=== PATIENT | male | born 1935 | race Caucasian/White ===

== ENCOUNTER 2016-06-17 10:07 | Day surgery (SDC) | payer MEDICARE, OTHER ==
[2016-06-17] VITALS (7 sets, daily range): BP systolic 123–151; BP diastolic 62–75; PULSE 48–56; RESP 12–16; O2SAT 96–100
[~2016-06-17] VITALS: Ht 175.3 cm; Wt 90.6 kg
[~2016-06-17 10:07] MED LIST: ASPI-973 PO; CHOL100045 PO; Lactated Ringer's 1,000 ML IV SCH; PRAM1.5T5 PO; VITA-230 PO; VITA200C61 PO
[2016-06-17] MEDS ORDERED: EPHEDrine/NS 5 mg/mL 5 mL Syringe ONE (10:08)
[2016-06-17] MEDS ORDERED: Dexamethasone 4 mg/mL Inj ONE (10:08)
[2016-06-17] MEDS ORDERED: fentaNYL-PF 50 mCg/mL 2 mL Inj ONE (10:08)
[2016-06-17] MEDS ORDERED: Propofol 10,000 mCg/mL 20 mL Inj ONE (10:08)
[2016-06-17] MEDS ORDERED: Ondansetron 2 mg/mL 2 mL Inj ONE (10:08)
[2016-06-17] MEDS ORDERED: Lactated Ringer's 1,000 ML IV ONE (11:19)
--- NOTE | 2016-06-17 11:22 | PCM.HPANE ---
Patient Data Date of Service: Jun 17, 2016 Surgeon Admitting Provider: Attending Provider:Angel Flores MD Primary Care Physician:Octavia Mares MD Other Provider:Dino Romero Anesthesia Reason for Visit Right Flank Melanoma Ht/WT & BMI Height (Feet): 5 Height (Inches): 9.00 Weight (Kilograms): 90.6 Body Mass Index 29.00 Allergies Coded Allergies: No Known Drug Allergies (Verified Allergy, Unknown, 03/05/16) Past Anesthesia History Anesthesia History: Denies:: Abnormal Airway, Anesthesia Reactions, Difficult Intubation, Fam Anesthesia Reaction, Fam Malignant Hypertherm, Malignant Hyperthermia Diabetes History Hx Diabetes?: No Current Bedside Blood Glucose: 95 MRSA MRSA: No Medications Blood Thinner: Aspirin Last Dose Blood Thinner: Jun 16, 2016 Hypertension Medication: No Home Meds Incl Beta Og: No Reported Medications Pramipexole Dihydrochloride 1.5 Mg Tablet0.75 Mg PO TID 06/16/16 Vitamin E (Dl,Tocopheryl Acet) (Vitamin E)200 Unit Rvmdsys380 Unit PO DAILY 06/16/16 Cholecalciferol (Vitamin D3) (Vitamin D)1,000 Unit Capsule2,000 Unit PO DAILY # 1 BOTTLE Ref 0 06/16/16 Vitamin A Palmitate (Vitamin A)10,000 Unit Mdxbmme47,000 Unit PO DAILY 30 Days Ref 0 06/16/16 Aspirin 81 Mg Tdcekw68 Mg PO DAILY Ref 0 06/16/16 Discontinued Reported Medications [Vit E] No Conflict Check1 Tab PO DAILY 03/05/16 Ascorbic Acid (Vitamin C)500 Mg Capsule.er500 Mg PO DAILY 03/05/16 Pramipexole Dihydrochloride 1.5 Mg Tablet1.5 Mg PO TID 03/05/16 Cholecalciferol (Vitamin D3) (Vitamin D)2,000 Unit Capsule2,000 Unit PO DAILY 30 Days Ref 0 10/13/14 Aspirin (Aspir 81)81 Mg Tablet.dr81 Mg PO DAILY Ref 0 10/13/14 History History of ENT Problems?: No HEENT History: Denies:: Abnormal Airway Difficult Intubation Dysphagia Hearing Problem Sinus Problem Hx of Heart Problems?: No Cardiovascular History: Denies:: AICD Atrial Fibrillation Chest Pain Heart Murmur Hypertension Pacemaker Rheumatic Fever Thrombophlebitis Valvular Heart Disease Hx of Respiratory Problem?: No Respiratory History: Denies:: Asthma COPD Cough Dyspnea Emphysema Hemoptysis Pneumonia Tuberculosis Use of C-PAP Machine Hx Neurologic Problems?: Yes Neurological History: Positive for:: Parkinson's Disease Denies:: Alzheimer's Disease CVA Dementia Dizziness Headaches Seizures Hx of GI Problems?: No Gastrointestinal History: Positive for:: Heartburn Denies:: Cirrhosis Diverticulitis Gastroesphageal Reflux Hepatitis Hiatal Hernia Rectal Bleeding Hx of Problems?: Yes Genitourinary History: Denies:: HX of Hemodialysis Kidney Stones Urinary Tract Infection Male Hx: Positive for:: Prostate Problems (PROSTATECTOMY) Skin History: Positive for:: History Skin Disorders? (SQUAMOUSE CELL CA AND MELANOMA) Denies:: Pressure Ulcers Hx Musculoskeletal Problems?: Yes Musculoskeletal History: Positive for:: Joint Replacement (BI-LATERAL KNEE, RIGHT HIP) Musculoskeletal Trauma Denies:: Back Injury Hx of Psycho/Social Problems?: No Psycho Social History: Positive for:: Hx Depression Denies:: Anxiety Bipolar Disorder Hx Surgeries?: Yes (BI-LATERAL KNEE, MELANOMA, SQUMOUS CELL CA) Hx Any Other Health Problems?: Yes Other History: Positive for:: Cancer (SQUAMAS CELL AND MELANOMA, PROSTATE) Hospitalization Denies:: Endocrine Disease Thyroid Disease History Blood Transfusions: Denies:: Blood Transfusions Hx Diabetes: NoBedside Blood Glucose: 95 Hx Alcohol Use: Yes (WINE)Alcoholic Drinks Per Day: 1-2Hx Substance Use: No Smoking Status: Former Smoker Have You Smoked inLast 12 mo: No Stop/Bang Treated for Sleep Apnea?: No Do You Have a CPAP Machine?: No S-Snoring: Do You Snore Loudly: No T-Tired: feel tired, fatigued: No O-Obsered: Observed not breath: No P-Blood Pressure: treated: No B- Body Mass Index > 35 kg/m2: No A- Age over 50: Yes N- Neck Large Circumference: No G- Gender Male: Yes GERONIMO Total Score: 2 GERONIMO Risk Assessment: Low Risk, <3 Yes Risk Assessment Category Category 1A: Patient has history of documented sleep apnea, and HAS NOT received any narcotic, sedative or anesthesia administration during this stay. Category 1B: Patient has history of documented sleep apnea, and HAS received any narcotic , sedative or anesthesia administration during this stay Category 2: Patient has SUSPECTED Obstructive Sleep Apnea, and HAS received any narcotic , sedative or anesthesia administration during this stay. Category 3: Patient has SUSPECTED Obstructive Sleep Apnea and HAS NOT received narcotic, sedative or anesthesia administration during this stay. Category 4: Outpatient in Procedural Areas with known sleep apnea or who screen positive for High Risk via the STOP/BANG questionnaire. Exam Exam Vital Signs Vital Signs Date Time Temp Pulse Resp B/P Pulse Ox O2 Delivery O2 Flow Rate FiO2 06/17/16 10:32 36.0 56 16 146/72 100 Room Air General Appearance: Alert, Oriented X3, Cooperative, No Acute Distress HEENT/AIRWAY: MP 2, Other (FROM, TMD > 3 FB) Lungs: Clear to Auscultation, Normal Air Movement Heart: Exam Unremarkable, Regular Rate/Rhythm, No Murmurs/Rubs/Gallops Meds/Labs/Diagnostics Bedside Blood Glucose: 95 Plan Impression Patient chart reviewed, patient interviewed and anesthestic plan with risks, benefits, and alternatives discussed, and informed consent obtained. NPO Status: 06/16 at 1600 ASA Physical Status: ASA2 Mod Systemic Disease Anesthetic Plan: GA Bene/Risks/Altern/Consents: Yes HP Complete Prior to Induction: Yes Matt Mccrary MD Jun 17, 2016 11:22
[2016-06-17] MEDS ORDERED: Lactated Ringer's 500 ML IV PRN (11:48)
[2016-06-17] MEDS ORDERED: Lactated Ringer's 1,000 ML IV SCH (11:48)
[2016-06-17] MEDS ORDERED: EPHEDrine Sulfate 50 mg/mL Inj IVPUSH PRN (11:50)
[2016-06-17] MEDS ORDERED: Phenylephrine 10,000 mCg/mL Inj IVPUSH PRN (11:50)
[2016-06-17] MEDS ORDERED: fentaNYL-PF 50 mCg/mL 2 mL Inj IVPUSH PRN (11:50)
[2016-06-17] MEDS ORDERED: Ondansetron 2 mg/mL 2 mL Inj IVPUSH PRN (11:50)
[2016-06-17] MEDS ORDERED: HYDROmorphone 1 mg/mL Inj IVPUSH PRN (11:50)
[2016-06-17] MEDS ORDERED: Dexamethasone 4 mg/mL Inj IVPUSH PRN (11:50)
[2016-06-17] MEDS ORDERED: Bupivacaine-MPF 0.5% 30 mL Inj INFILTRATE ONE (11:55)
[2016-06-17] MEDS ORDERED: HYDROcodone-APAP 5-325 mg Tablet PO PRN (12:50)
--- NOTE | 2016-06-17 12:59 | PCM.ANEP1 ---
Post Anesthesia Phase 1 PACU Phase 1 Assessment Date of Service: Jun 17, 2016 Vital Signs Vital Signs Date Time Temp Pulse Resp B/P Pulse Ox O2 Delivery O2 Flow Rate FiO2 06/17/16 12:55 48 14 139/71 98 Nasal Cannula 3 06/17/16 12:49 36.0 56 14 139/69 97 Nasal Cannula 3 06/17/16 10:32 36.0 56 16 146/72 100 Room Air Anesthetic Administered: GA Level of Alertness: Awake, talking GENAO's with Equal Strength: Yes Pain: No Nausea or Vomiting: No Oxygen Delivery: Nasal Cannula Lungs: Clear to Auscultation, Normal Air Movement Dermatome Level: Full Sensation Matt Mccrary MD Jun 17, 2016 12:59
--- NOTE | 2016-06-17 22:32 | OP ---
[address] [address] OPERATIVE REPORT PATIENT: JUDY FROST : 1935 MR#: [id number] ADMIT: 06/17/2016 JOB ID: [id number] DATE OF SURGERY: 06/17/2016 PREOPERATIVE DIAGNOSIS(ES): Metastatic malignant melanoma. POSTOPERATIVE DIAGNOSIS(ES): Metastatic malignant melanoma. PROCEDURES: 1. Right axillary wire localized lymph node biopsy. 2. Excision 4 cm right anterior flank lesion. 3. Excision 7 cm right posterior flank lesion. SURGEON: Angel Flores MD PRODUCTION STATISTICAL CLERK: Bravo Kat PA-C INDICATIONS: The patient is an 81-year-old man. He has had a previous right mid back malignant melanoma excised in 2009 at the [facility] by Dr. Rick Mendoza. The final pathology report was T2b N0. He recently developed a biopsy-proven recurrence in his right flank. A biopsy of a palpable subcutaneous nodule showed melanoma, and then he had a skin biopsy anterior to that that actually did not show melanoma but has not healed. He underwent imaging studies which showed a PET positive lymph node in the right axilla. He has been treated with five courses of nivolumab by Dr. Moreira. The subcutaneous nodule in his flank is essentially resolved. The right axillary node which was never palpable has decreased in size by imaging studies. But after discussing options with the patient and with Dr. Moreira, it was elected to proceed with excision of the right posterior and anterior flank lesions as well as excision of the image positive right axillary node. In order to find the node, I arranged for wire localization of it with ultrasound preoperatively. FINDINGS: Adjacent to the ultrasonically placed wire was a lymph node in the axilla that grossly appeared normal and was about the size as described on his imaging studies, 7-8 mm. I did not cut into it, but it was not grossly black. The anterior right flank lesion was 4 cm, and the known malignant right posterior flank lesion was 7 cm. All these lesions were submitted to Pathology. DESCRIPTION OF PROCEDURE: At the beginning and end of the operation, the SCOAP checklist was completed. An LMA anesthetic was induced. He was then placed into the left lateral decubitus position on a greer bag. After careful inspection of appropriate padding and support of his right arm, using Betadine, he was prepped and draped in the usual fashion. The right axillary node was excised first. An incision following skin lines was made adjacent to the wire which was then brought in to that incision. Using cautery dissection through subcutaneous tissue, extended the wound deeper; but then the wire could be seen going through the latissimus dorsi. I then dissected anterior to the anterior border of the latissimus dorsi, and then on the anterior medial side of the muscle, I was able to identify the wire and bring it through into the wound which had by this point deepened into the axilla. I was then able to identify the lymph node in question. It was excised using a LigaSure device. The specimen was sent to Pathology. With the findings as stated above. The wound was then closed with layers of running subcutaneous 3-0 Vicryl, including the clavipectoral fascia. The skin was closed with running subcuticular 4-0 Vicryl. I then turned my attention to the nonhealing right anterior flank lesion. A 1-cm margin was designed around the lesion, and then for better closure, I turned that [place] into an ellipse arranged in an anterior to posterior dimension. After injecting 0.5% plain bupivacaine, the lesion was excised with the findings as stated above. I then excised the right posterior subcutaneous mass lesion. An elliptical incision was then designed, and the lesion was excised using cautery. In both of the last two specimens, sutures were placed for margin orientation. After obtaining hemostasis, both wounds were closed with subcutaneous 3-0 Vicryl and running subcuticular 4-0 Vicryl. Dermabond was placed on all three incisions. Estimated blood loss 10 cc. No apparent complications. The final sponge, needle and instrument counts were announced as correct, and the patient was returned to recovery room in stable condition. Critical assistance was provided by Bravo Kat PA-C.
--- NOTE | 2016-06-18 17:44 | PCM.ANEP2 ---
Post Anesthesia Evaluation ASA/CMS Post Anesthesia Date of Service: Jun 18, 2016 VS in Patient's Normal Range?: Yes Resp Stable; Airway Patent?: Yes CV Function & Hydration Stable: Yes Mental Status Recovered?: Yes Pain control Satisfactory?: Yes N/V Control Satisfactory?: Yes Matt Mccrary MD Jun 18, 2016 17:44
[2016-09-01] MEDS ORDERED: DONE23TA PO (12:16)
[2016-11-14] MEDS ORDERED: BRIM5DRO9 OP (11:07)
[2016-11-14] MEDS ORDERED: PRAM0.754 PO (11:11)
== END 2016-06-17 23:59 | disposition home or self-care (01) ==
LOC: SAS 10:07
PROVIDERS: ATTEND Surgery
DX: C43.59 Malignant melanoma of other part of trunk (principal); I89.8 Other specified noninfective disorders of lymphatic vessels and lymph nodes; G20 Parkinson's disease; Z79.82 Long term (current) use of aspirin
CPT/HCPCS: 11604; 11606; 38525; J1100; J2405; J7120

== ENCOUNTER 2016-11-17 11:00 | Day surgery (SDC) | payer MEDICARE, OTHER ==
[~2016-11-17] VITALS: Ht 175.3 cm; Wt 86.2 kg
[~2016-11-17 11:00] MED LIST changes: +0.9% Sodium Chloride 1,000 ML IV SCH; +BRIM5DRO9 OP; +DONE23TA PO; -Lactated Ringer's 1,000 ML IV SCH; +PRAM0.754 PO; +Sodium Chloride LOK Flush 10 mL Syringe IV PRN; +fentaNYL-PF 50 mCg/mL 2 mL Inj IVPUSH PRN
[2016-11-17 11:21] VITALS: BP 148/80; PULSE 56; RESP 14; O2SAT 99
[2016-11-17 12:37] VITALS: BP 133/69; PULSE 47; RESP 16; O2SAT 97
[2016-11-17 12:48] VITALS: BP 116/64; PULSE 43; RESP 16; O2SAT 95
[2016-11-17 12:58] VITALS: BP 116/64; PULSE 48; RESP 16; O2SAT 96
--- NOTE | 2016-11-17 23:58 | ENDO ---
[address] [address] ENDOSCOPY PROCEDURE PATIENT: JUDY FROST : 1935 MR#: [id number] ADMIT: 11/17/2016 JOB ID: [id number] DATE: 11/17/2016 PRIMARY PROVIDER: Octavia Mares MD PROCEDURE: Colonoscopy with hot snare polypectomy. 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 He returns for surveillance. EQUIPMENT: PCF-H180-AL. SEDATION: 3 mg Versed, 75 mcg fentanyl. COMPLICATIONS: None identified. BOWEL PREPARATION: Fair, adequate exam. PROCEDURE INFORMATION: After the risks and benefits were explained, written and verbal informed consent was obtained. The patient was brought into the endoscopy suite and placed into the left lateral decubitus position. Sedation was achieved as above. A digital rectal examination accomplished. No significant pathology appreciated. The scope was introduced into the rectum and advanced under direct visualization to the level of the cecum, as identified by the appendiceal orifice and ileocecal valve. The scope was slowly withdrawn to carefully examine the mucosa for any defects or lesions. Retroflexed views were avoided in the rectum. Multiple direct views were made through the dentate line for exclusion of pathology. The colon was decompressed, the scope removed from the patient who tolerated the procedure well. FINDINGS: In the transverse colon, there were two perhaps 7-8 mm sessile polyps removed by way of hot snare. I did not see any other significant pathology throughout. ENDOSCOPIC DIAGNOSIS: Colon polyps x2. RECOMMENDATIONS: 1. Await histopathology. 2. Repeat colonoscopy in one year.
--- NOTE | 2016-11-18 13:55 | PATH ---
SURGICAL PATHOLOGY Attending Physician:Adelaide Carl CASE STATUS: Signed Out PATIENT NAME: JUDY FROST PID: [id number] : 1935 DATE COLLECTED:11/17/2016 22:33 SPECIMEN: Colon, Polyp CLINICAL HISTORY: COLON POLYPS 1). 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 ICD10 D12.3 GROSS DESCRIPTION: Received in formalin, labeled with the patient' s name and "transverse colon polyp", are multiple fragments of ramirez, soft tissue ranging in size from 0.1 x 0.1 x 0.1 cm to 0.2 x 0.2 x 0.2 cm. All fragments are totally submitted in cassette 1A. ([id number]) MICRO DESCRIPTION: See diagnosis. ICD-9 CODES: CPT CODES: 1: 93767 Electronically Signed Out Matthew Jeffries MD [facility] [address], [place] [address] Technical component performed at [facility], [address], [place], [address]
== END 2016-11-17 23:59 | disposition home or self-care (01) ==
LOC: END 11:00
PROVIDERS: ATTEND Internal Medicine Gastroenterology
DX: Z12.11 Encounter for screening for malignant neoplasm of colon (principal); D12.3 Benign neoplasm of transverse colon; Z86.010 Personal history of colon polyps; G20 Parkinson's disease; Z85.46 Personal history of malignant neoplasm of prostate; Z85.820 Personal history of malignant melanoma of skin; Z96.641 Presence of right artificial hip joint; Z79.82 Long term (current) use of aspirin
CPT/HCPCS: 45385; 88305; 99153; G0500; J7030

== ENCOUNTER → 2016-12-29 | Day surgery (SDC) | payer MEDICARE, OTHER ==
[~2016-12-29] VITALS: Ht 175.3 cm; Wt 82.7 kg
[2016-12-29] VITALS (9 sets, daily range): BP systolic 86–131; BP diastolic 47–68; PULSE 47–57; RESP 11–25; O2SAT 97–100
[~2016-12-29] MED LIST changes: -0.9% Sodium Chloride 1,000 ML IV SCH; +Acetaminophen IV 1,000 MG in IV Premix 1 EACH IV ONE; +CeFAZolin Inj 2 GM in IV Premix 1 EACH IV ONE; -DONE23TA PO; +DONE5TAB30 PO; +EPHEDrine Sulfate 50 mg/mL Inj IVPUSH PRN; +EPHEDrine/NS 5 mg/mL 5 mL Syringe ONE; +Lactated Ringer's 1,000 ML IV ONE; +Lactated Ringer's 1,000 ML IV SCH; +Lactated Ringer's 500 ML IV PRN; +Ondansetron 2 mg/mL 2 mL Inj IVPUSH PRN; -PRAM1.5T5 PO; +Phenylephrine 10,000 mCg/mL Inj IVPUSH PRN; +Propofol 10,000 mCg/mL 20 mL Inj ONE; -Sodium Chloride LOK Flush 10 mL Syringe IV PRN; -fentaNYL-PF 50 mCg/mL 2 mL Inj IVPUSH PRN; +fentaNYL-PF 50 mCg/mL 2 mL Inj ONE
--- NOTE | 2016-12-29 12:27 | PCM.HPANE ---
Patient Data Date of Service: Dec 29, 2016 Surgeon Admitting Provider: Attending Provider:Kalie Myers MD Primary Care Physician:Octavia Mares MD Other Provider:Dino Romero Anesthesia Reason for Visit Bladder Neck Contracture Ht/WT & BMI Height (Feet): 5 Height (Inches): 9 Weight (Kilograms): 82.7 Body Mass Index 27.00 Allergies Coded Allergies: carbidopa (Verified Allergy, Intermediate, Diarrhea, 12/24/16) levodopa (Verified Allergy, Intermediate, Diarrhea, 12/24/16) Past Anesthesia History Anesthesia History: Denies:: Abnormal Airway, Anesthesia Reactions, Difficult Intubation, Fam Anesthesia Reaction, Fam Malignant Hypertherm, Malignant Hyperthermia Diabetes History Hx Diabetes?: No MRSA MRSA: No Medications Blood Thinner: Aspirin Hypertension Medication: No Home Meds Incl Beta Og: No Reported Medications Donepezil 5 Mg Tablet5 Mg PO HS Ref 0 12/23/16 Pramipexole Di-HCl (Pramipexole Dihydrochloride)0.75 Mg Tablet0.75 Mg PO TID 11/14/16 Brimonidine Tartrate (Brimonidine 0.2% Oph Soln)5 Ml Drops1 Drop OP TID #1 BOTTLE Ref 0 11/14/16 Vitamin E (Dl,Tocopheryl Acet) (Vitamin E)200 Unit Exoxpaz430 Unit PO DAILY 06/16/16 Cholecalciferol (Vitamin D3) (Vitamin D)1,000 Unit Capsule2,000 Unit PO DAILY # 1 BOTTLE Ref 0 06/16/16 Vitamin A Palmitate (Vitamin A)10,000 Unit Rhunrdt17,000 Unit PO DAILY 30 Days Ref 0 06/16/16 Aspirin 81 Mg Eipank40 Mg PO DAILY Ref 0 06/16/16 Discontinued Reported Medications Donepezil (Aricept)23 Mg Icpent81 Mg PO HS Ref 0 09/01/16 Pramipexole Dihydrochloride 1.5 Mg Tablet0.75 Mg PO TID 06/16/16 History History of ENT Problems?: No HEENT History: Denies:: Abnormal Airway Difficult Intubation Dysphagia Hearing Problem Sinus Problem Denture Type: None Teeth Condition: Within Normal Limits Hx of Heart Problems?: Yes Cardiovascular History: Denies:: AICD Abdominal Aortic Aneurism Atrial Fibrillation Chest Pain Heart Murmur Hypertension Pacemaker Rheumatic Fever Thrombophlebitis Valvular Heart Disease Hx of Respiratory Problem?: No Respiratory History: Denies:: Asthma COPD Cough Dyspnea Emphysema Hemoptysis Oxygen Administration Pneumonia Tuberculosis Use of C-PAP Machine Hx Neurologic Problems?: Yes Neurological History: Positive for:: Parkinson's Disease Denies:: Alzheimer's Disease CVA Dementia Dizziness Headaches Seizures Hx of GI Problems?: Yes Gastrointestinal History: Positive for:: Gastrointestinal Bleeding Hx of Problems?: Yes Genitourinary History: Denies:: HX of Hemodialysis Kidney Stones Urinary Tract Infection Other Pertinent History: bladder neck contracture current admission problem Male Hx: Positive for:: Prostate Problems (RRPPL) Skin History: Positive for:: History Skin Disorders? (SKIN CA) Denies:: Pressure Ulcers Hx Musculoskeletal Problems?: No Musculoskeletal History: Positive for:: Joint Replacement (BILAT KNEES, R HIP) Musculoskeletal Trauma Denies:: Back Injury Hx of Psycho/Social Problems?: No Psycho Social History: Denies:: Anxiety Bipolar Disorder Hx Depression Hx Surgeries?: Yes (BACK MELANOMA, BILAT TKA, R HIP REPL) Hx Any Other Health Problems?: Yes Other History: Positive for:: Cancer (SCC, melanoma back, prostate) Hospitalization Denies:: Endocrine Disease Thyroid Disease History Blood Transfusions: Denies:: Blood Transfusions Hx Diabetes: No Hx Alcohol Use: YesAlcoholic Drinks Per Day: 2 drinks dailyHx Substance Use: No Smoking Status: Former Smoker Have You Smoked inLast 12 mo: No Stop/Bang S-Snoring: Do You Snore Loudly: No T-Tired: feel tired, fatigued: No O-Obsered: Observed not breath: No P-Blood Pressure: treated: No B- Body Mass Index > 35 kg/m2: No A- Age over 50: Yes N- Neck Large Circumference: No G- Gender Male: Yes GERONIMO Total Score: 2 GERONIMO Risk Assessment: Low Risk, <3 Yes Risk Assessment Category Category 1A: Patient has history of documented sleep apnea, and HAS NOT received any narcotic, sedative or anesthesia administration during this stay. Category 1B: Patient has history of documented sleep apnea, and HAS received any narcotic , sedative or anesthesia administration during this stay Category 2: Patient has SUSPECTED Obstructive Sleep Apnea, and HAS received any narcotic , sedative or anesthesia administration during this stay. Category 3: Patient has SUSPECTED Obstructive Sleep Apnea and HAS NOT received narcotic, sedative or anesthesia administration during this stay. Category 4: Outpatient in Procedural Areas with known sleep apnea or who screen positive for High Risk via the STOP/BANG questionnaire. Exam Exam Vital Signs Vital Signs Date Time Temp Pulse Resp B/P Pulse Ox O2 Delivery O2 Flow Rate FiO2 12/29/16 10:43 49 20 128/65 97 Room Air 12/29/16 09:00 36.2 47 25 131/66 97 Room Air 12/29/16 08:55 53 20 117/66 98 Room Air 12/29/16 08:50 36.5 54 12 124/68 98 Room Air 12/29/16 08:45 48 17 108/57 98 Room Air 12/29/16 08:40 49 11 98/51 100 Simple Mask 8 12/29/16 08:35 52 11 94/47 99 Simple Mask 8 12/29/16 08:33 36.6 50 12 86/47 100 Simple Mask 8 12/29/16 06:04 36.5 57 16 131/64 97 Room Air General Appearance: Alert, Oriented X3 HEENT/AIRWAY: MP 2 Lungs: Clear to Auscultation Heart: Exam Unremarkable Meds/Labs/Diagnostics Admission Meds Current Medications Cefazolin Sodium/ Dextrose 2 gm/ Premix 50 ml @ 100 mls/hr PREOP ONCE IV Last administered on 12/29/16 08:12; Start 12/29/16 at 06:00; Stop 12/29/16 at 06:29; Status DC Acetaminophen 1000 mg/Premix 100 ml @ 400 mls/hr ONCE ONCE IV Last administered on 12/29/16 08:08; Start 12/29/16 at 06:00; Stop 12/29/16 at 06:14 ; Status DC Lactated Ringer's (Lr) 1,000 ml @ ud STK-MED ONCE IV Last administered on 12/29 05:51; Start 12/29/16 at 05:51; Stop 12/29/16 at 05:52; Status DC Plan Impression Patient chart reviewed, patient interviewed and anesthestic plan with risks, benefits, and alternatives discussed, and informed consent obtained. ASA Physical Status: ASA2 Mod Systemic Disease Anesthetic Plan: GA Bene/Risks/Altern/Consents: Yes HP Complete Prior to Induction: Yes Antione Nicolas MD Dec 29, 2016 12:27
--- NOTE | 2016-12-29 12:35 | PCM.ANEP1 ---
Post Anesthesia PACU Phase 1 Assessment Vital Signs Vital Signs Date Time Temp Pulse Resp B/P Pulse Ox O2 Delivery O2 Flow Rate FiO2 12/29/16 10:43 49 20 128/65 97 Room Air 12/29/16 09:00 36.2 47 25 131/66 97 Room Air 12/29/16 08:55 53 20 117/66 98 Room Air 12/29/16 08:50 36.5 54 12 124/68 98 Room Air 12/29/16 08:45 48 17 108/57 98 Room Air 12/29/16 08:40 49 11 98/51 100 Simple Mask 8 12/29/16 08:35 52 11 94/47 99 Simple Mask 8 12/29/16 08:33 36.6 50 12 86/47 100 Simple Mask 8 12/29/16 06:04 36.5 57 16 131/64 97 Room Air Anesthetic Administered: GA Level of Alertness: Awake, talking Pain: Yes Nausea or Vomiting: Yes CV Function & Hydration Stable: Yes Airway Device: Oxygen Delivery: Room Air Lungs: Clear to Auscultation PACU Phase 2 Assessment Complications: No Follow up Care: No Patient Instructions Provided: N/A Antione Nicolas MD Dec 29, 2016 12:35
--- NOTE | 2016-12-30 09:26 | OP ---
[address] [address] OPERATIVE REPORT PATIENT: JUDY FROST : 1935 MR#: [id number] ADMIT: 12/29/2016 JOB ID: [id number] DATE OF SURGERY: 12/29/2016 SURGEON: Kalie Myers MD PREOPERATIVE DIAGNOSIS(ES): POSTOPERATIVE DIAGNOSIS(ES): OPERATION PERFORMED: Cystoscopy, transurethral incision, and dilation bladder neck contracture. ANESTHESIA: General. ANESTHESIOLOGIST: Antione Nicolas MD FINDINGS: A 12-14 inch bladder neck contracture, surgically absent prostate, moderately gaping external sphincter. PROCEDURE SUMMARY: The patient was positioned in semi lithotomy following induction of anesthetic. The lower abdomen, genitalia, and groin were prepped and draped in sterile fashion. The 22-Occitan visual urethrotome was then advanced to the lower urinary tract with findings as described above. Fitted with the surgical blade, incisions were made at 12, 2, 4, 6, 8, 9, and 10 o'clock to a depth of vascularized tissue. The scope was then carefully removed and the bladder neck contracture was dilated to 28-Occitan with the Cindi sounds. An 18-Occitan silicone catheter was then inserted, the balloon inflated to 10 cc and then the catheter was then placed to gravity drainage. The patient was then repositioned in supine, awakened, transferred to [facility], and transferred to recovery awake in stable condition.
== END | disposition home or self-care (01) ==
LOC: SAS 05:37
PROVIDERS: ATTEND Specialist
DX: N32.0 Bladder-neck obstruction (principal); Z79.82 Long term (current) use of aspirin; Z79.899 Other long term (current) drug therapy; Z88.8 Allergy status to other drugs, medicaments and biological substances; Z87.891 Personal history of nicotine dependence
CPT/HCPCS: 52500; J0131; J0690; J3010; J7120

== ENCOUNTER 2017-02-09 08:34 | Inpatient (IN) | payer MEDICARE, OTHER ==
[2017-02-09] VITALS (8 sets, daily range): BP systolic 121–170; BP diastolic 65–82; PULSE 47–56; RESP 15–18; O2SAT 96–98
[~2017-02-09] VITALS: Ht 175.3 cm; Wt 82.6 kg
[~2017-02-09 08:34] MED LIST changes: -Acetaminophen IV 1,000 MG in IV Premix 1 EACH IV ONE; +BRIM5DRO9 BOTH_EYES; -BRIM5DRO9 OP; -CeFAZolin Inj 2 GM in IV Premix 1 EACH IV ONE; -EPHEDrine Sulfate 50 mg/mL Inj IVPUSH PRN; -EPHEDrine/NS 5 mg/mL 5 mL Syringe ONE; -Lactated Ringer's 1,000 ML IV ONE; -Lactated Ringer's 1,000 ML IV SCH; -Lactated Ringer's 500 ML IV PRN; -Ondansetron 2 mg/mL 2 mL Inj IVPUSH PRN; -Phenylephrine 10,000 mCg/mL Inj IVPUSH PRN; -Propofol 10,000 mCg/mL 20 mL Inj ONE; -fentaNYL-PF 50 mCg/mL 2 mL Inj ONE
--- NOTE | 2017-02-09 08:41 | ED.REPORT ---
HPI-General Illness Date of Service Feb 09, 2017 ED Provider: Ghulam Greenfield Patient is an 81 year old male with a hx of Parkinson's on Aricept who presents to the ED via EMS complaining of episodes of weakness onset 0400 this morning. His last known time normal and without symptoms is last night before going to bed. The first episode began at 0400 when he noticed he was weak in both legs with unsteady gait and lightheadedness upon getting out of bed. Patient used his 's walker at this time to ambulate from the bedside but he does not normally need assistance. His symptoms resolved on their own without intervention, but then he had a subsequent episode at 0810. Associated symptoms include some L arm weakness and L sided facial numbness since arriving to the ED. He denies chest pain, SOB, headache, vision changes, rash, itching, abdominal pain, diarrhea, constipation, hematuria, hematochezia, chills, fever, sore throat, back pain, or any other symptoms. Patient is not on blood thinners. Nursing Notes Stated Complaint: LEFT SIDED WEAKNESS Nursing Notes Reviewed: Yes Allergies: Coded Allergies: carbidopa (Verified Allergy, Intermediate, Diarrhea, 12/24/16) levodopa (Verified Allergy, Intermediate, Diarrhea, 12/24/16) Scheduled Aspirin (Aspirin) 81 Mg Tablet 81 MG PO DAILY Brimonidine Tartrate (Brimonidine 0.2% Oph Soln) 5 Ml Drops 1 DROP BOTH_EYES DAILY Cholecalciferol (Vitamin D3) (Vitamin D) 1,000 Unit Capsule 2,000 UNIT PO DAILY Donepezil (Donepezil) 10 Mg Tablet 10 MG PO HS Latanoprost (Latanoprost) 2.5 Ml Drops 1 DROP BOTH_EYES DAILY Pramipexole Di-HCl (Pramipexole Dihydrochloride) 0.75 Mg Tablet 0.75 MG PO TID Vitamin A Palmitate (Vitamin A) 10,000 Unit Capsule 10,000 UNIT PO DAILY Vitamin E (Dl,Tocopheryl Acet) (Vitamin E) 200 Unit Capsule 200 UNIT PO DAILY General Time Seen by MD: 08:40 Chief Complaint Weakness Hx Obtained From: Patient Arrived By: Ambulance Sudden in Onset?: Yes Onset Occurred: 5 - 8 hours ago Symptom Duration: Intermittent Severity: Current: No pain currently Severity: Maximum: No pain Additional Notes: Lightheaded, facial numbness Pertinent Negative: Pt denies other symptoms Context Related History: Denies Seizure disorder Similar Sx Previous: No Past Medical History Past Medical History Parkinson's on Aricept GI bleed SCC Melanoma - back prostate cancer Past Surgical History RRPPL Bilat knee replacement R hip replacement melanoma excision Smoking History Former Smoker Social History Alcohol Use: "Social" Review of Systems Full Review of Systems Constitutional: Denies: Chills, Fever Ears / Nose / Throat: Denies: Sore throat Respiratory: Denies: Shortness of breath Cardiovascular: Denies: Chest pain GI: Denies: Abdominal pain, Diarrhea, Hematochezia Male: Denies Hematuria Musculoskeletal: Denies: Back pain Skin: Denies Rash Allergy / Immune: Denies: Itching Neurologic: Reports: Lightheaded, Numbness, Problem walking (unsteady gait ), Weakness, Denies: Headache, Vision change Complete sys rev & neg: except as marked. Physical Exam Nursing note and vitals reviewed. Mildly hypertensive and mild bradycardia with rate 55. Vitals otherwise grossly within normal limits. Constitutional: Well-developed, well-nourished. Not diaphoretic. Head: Normocephalic and atraumatic. Mouth/Throat: Oropharynx is clear and moist. No oropharyngeal exudate. Eyes: EOM are normal. Pupils are equal, round, and reactive to light. Neck: Supple, no tracheal deviation. Cardiovascular: Bradycardic with rate 55, regular rhythm. Equal and intact distal pulses throughout. Pulmonary/Chest: Effort normal and breath sounds normal. No respiratory distress. Abdominal: Soft. No distension. There is no tenderness, rebound, or guarding. Bowel sounds present. Musculoskeletal: Range of motion grossly intact, moving all extremities. No edema or tenderness appreciated. Neurological: AOx3. No facial droop. No dysarthria. Dysmetria present on the left. Unable to perform heel to alberts on left. Mildly decreased sensation on left lower leg. Some left leg drift. Stroke scale score 4. Skin: Warm and dry, no rashes or pallor appreciated. Psychiatric: Appropriate mood and affect. Behavior appears normal. Vital Signs Vital Signs Date Time Temp Pulse Resp B/P Pulse Ox O2 Delivery O2 Flow Rate FiO2 02/09/17 10:18 56 18 153/67 96 Room Air 02/09/17 08:43 36.5 55 15 149/71 96 Room Air Initial VS: Reviewed Interpretation & Diagnostics Lab Results Interpretation Result Diagram: 02/09/17 0850 02/09/17 0850 Test 02/09/17 08:50 02/09/17 11:00 White Blood Count 6.8th/mm3 (3.8-10.1) Red Blood Count 4.42mil/mm3 (4.40-5.80) Hemoglobin 14.2g/dL (13.8-17.2) Hematocrit 41.7% (41.0-50.0) Mean Corpuscular Volume 94.3fL (81-100) Mean Corpuscular Hemoglobin 32.1pg (27.0-35.0) Mean Corpuscular Hemoglobin Concent 34.1% (32.0-37.0) Red Cell Distribution Width 12.5% (12.3-15.4) Platelet Count 228bil/L (150-400) Neutrophils (%) (Auto) 62.6% (40-74) Lymphocytes (%) (Auto) 17.4% (14-46) Monocytes (%) (Auto) 16.4% (4-12) Eosinophils (%) (Auto) 2.9% (0-5) Basophils (%) (Auto) 0.4% (0-3) Prothrombin Time 10.7sec (8.1-12.5) Prothromb Time International Ratio 1.00ratio Activated Partial Thromboplast Time 29.3sec (22.8-33.0) Sodium Level 138mEq/L (134-144) Potassium Level 4.1mEq/L (3.5-5.2) Chloride Level 101mEq/L (97-108) Carbon Dioxide Level 20mmol/L (18-29) Blood Urea Nitrogen 15mg/dL (8-27) Creatinine 0.45mg/dL (0.76-1.27) Estimat Glomerular Filtration Rate 191mL/min (>59) Glucose Level 108mg/dL (60-99) Calcium Level 9.0mg/dL (8.5-10.1) Total Bilirubin 0.6mg/dL (0.0-1.2) Aspartate Amino Transf (AST/SGOT) 22U/L (0-50) Alanine Aminotransferase (ALT/SGPT) 15U/L (0-44) Alkaline Phosphatase 123U/L (25-160) Troponin T 0.010ug/L (0.0-0.011) Total Protein 7.1g/dL (6.4-8.4) Albumin 4.0g/dL (3.4-5.0) Triglycerides Level 83mg/dL (0-149) Cholesterol Level 169mg/dL (100-199) LDL Cholesterol, Calculated 98.400mg/dL (0-99) VLDL Cholesterol 16.600mg/dL HDL Cholesterol 54mg/dL (>39) Cholesterol/HDL Ratio 3.13 (0.0-4.4) Urine Color Yellow (YELLOW) Urine Appearance Clear (CLEAR,HAZY) Urine pH 6.0 (5.0-8.0) Urine Specific [place] 1.014 (1.003-1.035) Urine Protein Negativemg/dL (NEG,TRACE) Urine Glucose (UA) Negativemg/dL (NEGATIVE) Urine Ketones Negativemg/dL (NEGATIVE) Urine Occult Blood Negative (NEGATIVE) Urine Nitrite Negative (NEGATIVE) Urine Bilirubin Negative (NEGATIVE) Urine Urobilinogen Normalmg/dL (NORMAL) Urine Leukocyte Esterase Negative (NEGATIVE) Urine RBC 0-2/hpf (0-2) Urine WBC 0-5/hpf (0-5) Urine Epithelial Cells Few/hpf (NONE-MOD) Urine Crystals Oxalic acid crystals (NONE Urine Bacteria None/hpf (NONE-FEW) Urine Hyaline Casts None/lpf (NONE) Urine Granular Casts None seen (NONE SEEN) Urine Waxy Casts None seen (NONE SEEN) Urine Red Blood Cell Casts None seen (NONE SEEN) Urine White Blood Cell Casts None seen (NONE SEEN) Urine Mucus None seen (None Seen) Urine Trichomonas None seen (NONE SEEN) Urine Yeast None (NONE SEEN) Urinalysis Comment None Urine Culture Reflexed Not indicated ECG Interpretation ECG Interpretation: No prior for comparison Sinus bradycardic with rate 49 Artifact present appear to be small p-waves in V1 rhythm strip Time: 09:42 Interpreted by: ED physician CT Head Interpretation IMPRESSION: 1. No acute intracranial abnormality. 2. Grtt-nb-[id number] cerebral volume loss and mild chronic white matter small vessel ischemic changes. Dictated by: Woody Nelson M.D. on 02/09/2017 at 9:33 Approved by: Woody Nelson M.D. on 02/09/2017 at 9:34 Study: Head CT no contrast Interpretation / Wet Read by: Interpret - Radiologist Re-Eval/Medical Decision Med Decision/Clinical Course In summary, 81-year-old male presenting to the ED for evaluation of feeling unsteady on his feet and left-sided weakness noted upon waking this morning, gradually improving initially, however returning later in the morning. Patient was last known normal last night when he went to bed and noticed the symptoms immediately after getting out of bed. Differential diagnosis includes CVA, metabolic abnormality, hypoglycemia, intracranial mass/bleed, etc. A noncontrast head CT was obtained upon patient's arrival to the ED, does not show any acute intracranial abnormality, including no evidence of hemorrhage. NIHSS of 4. TPA was considered, however not given as the patient has a relatively low stroke scale score, intermittent symptoms, and last known normal and symptom free was upon going to bed last night. However, I did discuss the patient with the neurologist Dr. Rabago at [facility]. He concurs that the patient is not a good candidate for TPA or other interventions/transfer/clot retrieval at this time. I also discussed the above with the patient at length. Laboratory studies here in the ED reviewed, grossly unremarkable with a CBC, CMP , and coags all grossly within normal limits. Troponin negative. Patient given aspirin and IV fluids here in the ED. Plan admission for further management and evaluation. Patient agreeable to the plan as stated, no further questions. Time of Eval: 10:00 Re-Evaluation/Progress Note: Discussed plan for admission. Patient understands and agrees with plan. All questions addressed at this time. Consultation #1: Consulted With: Neurology Call Returned at: 10:17 Note: Discussed pt's case with [facility] neurologist Dr. Rabago. Pt is not a candidate for TPA or transfer due to stroke scale score of 4 and time of onset. Consultation #2: Referral / Consult Name: Leatha Davis MD Call Returned at: 11:45 Rehabilitation Case Coordinator: Will see patient, Agrees with eval, Agrees with plan, Accepts admit Note: Discussed pt's case. Accepts admit. Counseled Regarding: Diagnosis, Lab results, Need for admission Discharge & Departure Primary Impression: CVA (cerebral vascular accident) CVA mechanism: unspecified Qualified Code: I63.9 - Cerebral infarction, unspecified Disposition: ADMITTED TO HOSPITAL Discharge Condition All VS Reviewed: Yes Condition: Stable Referrals: Octavia Mares MD (PCP) Crit Care Except Billable Proc Time Spent: 30-74 minutes Services Performed: Patient management by me, Time spent at bedside, Reviewing test results, Reviewing imaging, Discussing patient care, Documentation in record Critical Care Notes: 40 minutes of critical care time was spent in the management of this patient. Please see the MDM above. Scribe Attestation Portions of this note were transcribed by Romero Reaves. I, Dr. Greenfield personally performed the history, physical exam and medical decision-making; I reviewed and confirmed the accuracy of the information in the transcribed note. Signed by: Vinayak Gavin, 02/09/17 copies to: Octavia Mares MD Risk Factors TPA Administration/Criteria Stroke Thrombolytic Therapy : TPA Considered: Yes Neurologist Contacted: Yes TPA Administered Intravenously: No, exclusion criteria (time of onset ) Addl Ex Criteria 3-4.5 Hr: Age > 80 years NIH Stroke Scale Level of Consciousness: Alert and responsive (0) Ask Month & Age: Both questions right (0) Open/Close Eyes/Hand Pecan Mallow Dipper: Performs both tasks (0) Horizontal EO Movements: None (0) Visual Chiu: No visual loss (0) Facial Palsy: Normal symmetry (0) Right Arm Motor Drift (10s): No drift 10 sec (0) Left Arm Motor Drift (10s): No drift 10 sec (0) Right Leg Motor Drift (5s): No drift 5 sec (0) Left Leg Motor Drift (5s): Drift, not touch bed (1) Limb Ataxia FNF/Heel-Alberts: Ataxia in 2 limbs (2) (L leg and L arm ) Sensation (Arms/Legs/Face): P-prick dull but felt (1) Language Aphasia: No aphasia, normal (0) Dysarthria: No dysarthria, normal (0) Extinction/Inattention: No exctinct/inattent (0) NIHSS Score: 4 Time NIHSS Performed: 10:07 Date NIHSS Performed: Feb 09, 2017 Ghulam Greenfield MD Feb 09, 2017 08:40 ROMERO REAVES Feb 09, 2017 09:41
--- NOTE | 2017-02-09 09:35 | DRSVH ---
PROCEDURE: CT BRAIN WITHOUT CONTRAST ([id number]) INDICATIONS: L side numbness TECHNIQUE: Noncontrast 4.5 mm thick angled axial sections acquired from the foramen magnum to the vertex, with c oronal reformats. COMPARISON: None. FINDINGS: Image quality: Excellent. CSF spaces: Basal cisterns are patent. No extra-axial fluid collections. The ventricles are symmet lucio in size and shape. There is wxce-vj-jzrgwstp cerebral volume loss, with resultant ventricular an d sulcal prominence. Brain: No intracranial hemorrhage, mass, or mass effect. There are subcortical, periventricular and deep white matter hypodensities consistent with mild chronic small vessel ischemic changes. There i s intracranial internal carotid artery atherosclerosis. Skull and face: Calvarium and visualized facial bones appear intact, without suspicious lesions. Sinuses: Visualized sinuses demonstrate mild mucosal thickening in the ethmoid and sphenoid sinuses. The mastoid air cells are clear. IMPRESSION: 1. No acute intracranial abnormality. 2. Alas-ng-dvsbpqac cerebral volume loss and mild chronic white matter small vessel ischemic changes . Dictated by: Woody Nelson M.D. on 02/09/2017 at 9:33 Approved by: Woody Nelson M.D. on 02/09/2017 at 9:34
[2017-02-09 09:53] LABS: BASOPHILS % (AUTO) 0.4 % (0-3); EOSINOPHILS % (AUTO) 2.9 % (0-5); MONOCYTES % (AUTO) 16.4 % (4-12); Mean Corpuscular Hemoglobin 32.1 pg (27.0-35.0); Mean Corpuscular Volume 94.3 fL (81-100); NEUTROPHILS % (AUTO) 62.6 % (40-74); Platelet Count 228 bil/L (150-400)
[2017-02-09] MEDS ORDERED: 0.9% Sodium Chloride 1,000 ML IV ONE (10:23)
[2017-02-09 10:45] LABS: TROPONIN T 0.01 ug/L (0.0-0.011)
--- NOTE | 2017-02-09 10:45 | NUR ---
Evaluation completed. Please go to "Notes" then click on "Assessments and Notes" (bottom left corner of screen). Then select appropriate discipline tab on top of screen.
[2017-02-09] MEDS ORDERED: DONE10TA42 PO (11:58)
[2017-02-09] MEDS ORDERED: LATA2.5D6 BOTH_EYES (11:59)
[2017-02-09] MEDS ORDERED: Alum-Mag Hydrox-Simeth 30 mL Suspension PO PRN (12:15)
[2017-02-09] MEDS ORDERED: Ondansetron 2 mg/mL 2 mL Inj IVPUSH PRN (12:15)
[2017-02-09] MEDS ORDERED: Polyethylene Glycol (PEG) 17 Gm Powder PO PRN (12:15)
--- NOTE | 2017-02-09 12:34 | PCM.HPMED ---
Subjective Date of Service Feb 09, 2017 Primary Provider: Admitting Physician: Leatha Davis MD Primary Care Physician: Octavia Mares MD Attending Physician: Leatha Davis MD Admit Status: From the Emergency Department, Full Admit, Remote Telemetry Chief Complaint: Left-sided weakness History of Present Illness: This is an 81-year-old male with a history of Parkinson's and mild to moderate dementia who presents to the emergency room complaining of acute onset either before he went to better when he woke up this morning of left sided weakness. He has had no prior history of similar. Had no history of strokes. He denies any chest pain palpitations fevers or chills. He does take ASA 81 mg by mouth daily. His EKG shows sinus at a rate of 49 and patient notes that he has a long history of always a slow heart rate. He denies any change in speech or thought processes. CT scan without contrast of head reveals no acute intracranial abnormality. Mild to moderate cerebral volume loss and mild chronic white matter changes are consistent with small vessel ischemic changes. Patient currently is on Aricept and Mirapex for his Parkinson's disease. He does live with his was not at bedside during the interview with the patient. Review of Systems: Patient denies any nausea vomiting alteration in bowel movements. All other review of systems are reviewed and are negative except for as in HPI. Allergies Coded Allergies: carbidopa (Verified Allergy, Intermediate, Diarrhea, 12/24/16) levodopa (Verified Allergy, Intermediate, Diarrhea, 12/24/16) Home Medications Scheduled Aspirin (Aspirin) 81 Mg Tablet 81 MG PO DAILY Brimonidine Tartrate (Brimonidine 0.2% Oph Soln) 5 Ml Drops 1 DROP OP TID Cholecalciferol (Vitamin D3) (Vitamin D) 1,000 Unit Capsule 2,000 UNIT PO DAILY Donepezil (Donepezil) 5 Mg Tablet 5 MG PO HS Pramipexole Di-HCl (Pramipexole Dihydrochloride) 0.75 Mg Tablet 0.75 MG PO TID Vitamin A Palmitate (Vitamin A) 10,000 Unit Capsule 10,000 UNIT PO DAILY Vitamin E (Dl,Tocopheryl Acet) (Vitamin E) 200 Unit Capsule 200 UNIT PO DAILY PMH Past Medical History Parkinson's on Aricept GI bleed SCC Melanoma - back prostate cancer Past Surgical History RRPPL Bilat knee replacement R hip replacement melanoma excision Family History She denies any family history of neurovascular disease, diabetes, cardiovascular disease Social History Hx Alcohol Use: Yes ("glass of wine every night") Hx Substance Use: No Hx Tobacco Use: No Smoking Status: Former Smoker Living Arrangement: with Family Exam Vital Signs Vital Sign - Last Date Time Temp Pulse Resp B/P Pulse Ox O2 Delivery O2 Flow Rate FiO2 02/09/17 11:51 48 16 133/73 98 Room Air 02/09/17 08:43 36.5 Exam Constitutional: Elderly male in no acute distress Head: Normocephalic atraumatic Eyes: PERRLA DC Mouth: No lesions Neck: Carotids are full without bruits Chest: Clear to auscultation Cor: Bradycardic rate and regular rhythm, S1-S2 without murmur Abdomen: Soft nontender bowel sounds present Extremities: No pedal edema Skin: No rashes Psych: Flat affect Neuro: Alert and oriented 3, he does have 4+ over 5 left arm and left leg weakness with 5 over 5 strength of his right arm and leg. Babinski's are downgoing. He does have some dysmetria noted with left finger pointing but not a deficit on the right. Lab and Diagnostics Labs Laboratory Tests 72 Hours Test 02/09/17 08:50 02/09/17 11:00 White Blood Count 6.8th/mm3 (3.8-10.1) Red Blood Count 4.42mil/mm3 (4.40-5.80) Hemoglobin 14.2g/dL (13.8-17.2) Hematocrit 41.7% (41.0-50.0) Mean Corpuscular Volume 94.3fL (81-100) Mean Corpuscular Hemoglobin 32.1pg (27.0-35.0) Mean Corpuscular Hemoglobin Concent 34.1% (32.0-37.0) Red Cell Distribution Width 12.5% (12.3-15.4) Platelet Count 228bil/L (150-400) Neutrophils (%) (Auto) 62.6% (40-74) Lymphocytes (%) (Auto) 17.4% (14-46) Monocytes (%) (Auto) 16.4% (4-12) Eosinophils (%) (Auto) 2.9% (0-5) Basophils (%) (Auto) 0.4% (0-3) Prothrombin Time 10.7sec (8.1-12.5) Prothromb Time International Ratio 1.00ratio Activated Partial Thromboplast Time 29.3sec (22.8-33.0) Sodium Level 138mEq/L (134-144) Potassium Level 4.1mEq/L (3.5-5.2) Chloride Level 101mEq/L (97-108) Carbon Dioxide Level 20mmol/L (18-29) Blood Urea Nitrogen 15mg/dL (8-27) Creatinine 0.45mg/dL (0.76-1.27) Estimat Glomerular Filtration Rate 191mL/min (>59) Glucose Level 108mg/dL (60-99) Calcium Level 9.0mg/dL (8.5-10.1) Total Bilirubin 0.6mg/dL (0.0-1.2) Aspartate Amino Transf (AST/SGOT) 22U/L (0-50) Alanine Aminotransferase (ALT/SGPT) 15U/L (0-44) Alkaline Phosphatase 123U/L (25-160) Troponin T 0.010ug/L (0.0-0.011) Total Protein 7.1g/dL (6.4-8.4) Albumin 4.0g/dL (3.4-5.0) Result Diagram: 02/09/17 0850 02/09/17 0850 X-Rays, CTs and MRIs PROCEDURE: CT BRAIN WITHOUT CONTRAST ([id number]) INDICATIONS: L side numbness TECHNIQUE: Noncontrast 4.5 mm thick angled axial sections acquired from the foramen magnum to the vertex, with coronal reformats. COMPARISON: None. FINDINGS: Image quality: Excellent. CSF spaces: Basal cisterns are patent. No extra-axial fluid collections. The ventricles are symmetric in size and shape. There is gjcu-um-vfrrjbte cerebral volume loss, with resultant ventricular and sulcal prominence. Brain: No intracranial hemorrhage, mass, or mass effect. There are subcortical , periventricular and deep white matter hypodensities consistent with mild chronic small vessel ischemic changes. There is intracranial internal carotid artery atherosclerosis. Skull and face: Calvarium and visualized facial bones appear intact, without suspicious lesions. Sinuses: Visualized sinuses demonstrate mild mucosal thickening in the ethmoid and sphenoid sinuses. The mastoid air cells are clear. IMPRESSION: 1. No acute intracranial abnormality. 2. Vvyn-vm-erfoejis cerebral volume loss and mild chronic white matter small vessel ischemic changes. Dictated by: Woody Nelson M.D. on 02/09/2017 at 9:33 Approved by: Woody Nelson M.D. on 02/09/2017 at 9:34 12-lead ECG Sinus area 49 QTc is 416 poor R-wave progression across precordium Assessment & Plan # CVA with left hemiparesis, acute, present on admission -We will add Plavix to ASA 81 mg by mouth daily -Check echocardiogram, CT of head and neck, MRI stroke protocol -Check PT PTT -ST, OT, PT consults -Swallow eval -Placed on telemetry -Check hemoglobin A1c and fasting lipid panel # Parkinson's disease, chronic, present on admission -Continue with Mirapex # Dementia, chronic, present on admission -Continue with Aricept # DVT prophylaxis -We will use SCDs in place on subcutaneous prophylactic anticoagulant given recent CVA in 1 to avoid hemorrhagic extension # CODE STATUS -Full code GI Prophylaxis: H2 yoselny VTE Prophylaxis Indicated: Contraindicated (due to recent CVA) VTE Prophylaxis: SCDs Resuscitation Status: CPR: Attempt Resuscitation Time spent 60 minutes Leatha Davis MD Feb 09, 2017 12:33
[2017-02-09 12:45] LABS: APPEARANCE,URINE CLEAR (CLEAR,HAZY); COLOR,URINE YELLOW (YELLOW); OCCULT BLOOD,URINE NEGATIVE (NEGATIVE); UROBILINOGEN,URINE NORMAL (NORMAL)
--- NOTE | 2017-02-09 13:27 | NUR ---
Admit: Arrived to [facility] @ approx 1230 via stretcher. Ambulated 1PA to bed. Stand up scale obtained. Alert & oriented. Denies pain, shortness of breath, dizziness and lightheadedness. Noted decreased sensation in left lower extremity and left upper extremity drifting. Bed in low and locked position, bed rails up x 2, non-skid socks on for safety, Stuart bed alarm in place. Encouraged to call for assistance when getting out of bed. Oriented to room and call light system. Off unit at approx 1320 for MRI accompanied by technical writing lead/mgr. information technology professor notified. SB 1st degree AVB 50s per school bus monitor.
--- NOTE | 2017-02-09 14:55 | NUR ---
Evaluation completed. Please go to "Notes" then click on "Assessments and Notes" (bottom left corner of screen). Then select appropriate discipline tab on top of screen.
--- NOTE | 2017-02-09 16:34 | DRSVH ---
PROCEDURE: MRI STROKE PROTOCOL ([id number]) Pre- and post-contrast brain MRI, non-contrast brain MR angiogram, pre- and postcontrast neck MR nell ogram INDICATIONS: 81-year-old male with history of acute left-sided weakness. TECHNIQUE: Brain: Noncontrast axial T1 spin echo, axial T2 fast spin echo, sagittal and axial FLAIR, coronal T2 fast spin echo, axial gradient echo, axial diffusion and ADC through the brain. After the administr ation of contrast, axial 3D VIBE of the cranial vasculature and brain. Brain MRA: Non-contrast 3-D time of flight MR angiogram, with multiple tvbyyrn-utdlircne-ussioklitr (MIP) reformats performed. Neck MRA: Axial and sagittal TruFISP through the neck. Coronal dynamic MR angiogram during administ ration of contrast in the arterial and venous phases, with 3-dimenstional lwgeyub-rwitmftii-qvtffxpqe n (MIP) reformats constructed from subtraction images. COMPARISON: [facility], CT, CT BRAIN WO CON, 02/09/2017, 9:01. [facility], M R, MR BRAIN W&WO CON, 03/12/2016, 11:20. FINDINGS: Image quality: Excellent. BRAIN: CSF spaces: There is moderate cerebral volume loss with prominence of the ventricles and sulci. Bas al cisterns are patent. No extra-axial fluid collections. Brain: There is a small focus of restricted diffusion within the posterior limb of right internal ca psule. This demonstrates corresponding hypointense signal on the ADC map and slight T2 hyperintensit y. The findings are consistent with an acute to subacute infarct. No evidence of hemorrhagic transf ormation. Elsewhere in the brain, no intracranial hemorrhage, mass, or mass effect. There are scatt ered subcortical and periventricular foci of white matter T2 hyperintensity consistent with mild fine arts model jennie small vessel ischemic changes. Brainstem appears normal. Normal intravascular flow voids are pr esent. No abnormal intracranial enhancement. Skull and face: Calvarial marrow signal is normal. Orbits appear normal. Sinuses: There is mild mucosal thickening within the bilateral ethmoid sinuses. The mastoid air cell s are clear. BRAIN MR ANGIOGRAM: Anterior circulation: Intracranial internal carotid arteries are normal in size and patent bilateral ly. The flow within the paired anterior cerebral arteries is patent bilaterally. The flow within th e middle cerebral arteries is patent bilaterally. The anterior communicating artery is patent. No h igh-grade stenoses, occlusions, or aneurysms. Posterior circulation: The visualized portions of the vertebral arteries are patent bilaterally and join to form a patent basilar artery. The flow within the posterior cerebral arteries is patent bila terally. No high-grade stenoses, occlusions, or aneurysms. NECK MR ANGIOGRAM: Carotids: Great vessels demonstrate conventional anatomy as they arise from the aortic arch. The or igins of the common carotid arteries appear patent. The calibers and courses of both common carotid arteries are normal. There is bilateral narrowing in the carotid bulbs with approximately 70% stenos es. The internal carotid arteries demonstrate normal course and caliber. Posterior circulation: The origins of the vertebral arteries appear patent. More superior portions of both vertebral arteries demonstrate normal course and caliber, and join to form a normal appearing basilar artery. Miscellaneous: Subclavian arteries appear patent. Pre-contrast images through the neck show no soft tissue abnormalities. IMPRESSION: BRAIN MRI: 1. Acute to early subacute infarct in the posterior limb of the right internal capsule without evide nce of hemorrhagic transformation. 2. Moderate cerebral volume loss and mild chronic white matter small vessel ischemic changes. BRAIN MR ANGIOGRAM: 1. No high-grade stenosis or occlusion of the head and neck arteries. NECK MR ANGIOGRAM: 1. Bilateral stenoses of approximately 70% in the carotid bulbs. Findings were discussed with Dr. Davis on 02/09/17 at 4:25 PM. The estimate of stenosis included in the report of the imaging study was calculated using the NASCET method Dictated by: Woody Nelson M.D. on 02/09/2017 at 16:22 Approved by: Woody Nelson M.D. on 02/09/2017 at 16:33
--- NOTE | 2017-02-09 17:27 | NUR ---
Social Work-initial assessment: Data:See initial assessment. Pt is a 81 y/o male who was admitted on 02/09/17 for CVA per H&P. Pt's insurance is [employer] and PCP is Octavia Mares MD. EMR reviewed. SW met with pt to discuss discharge planning, SW role explained. Pt is alert and oriented x3. Pt resides at home with Lamar who has dementia. Pt states they have a caregiver 5 days a week from [facility]. states his one daughter is staying with pt's samira and then his other daughter is flying in from [place] tomorrow to stay with pt's . Pt states he plans on getting his a full time staff interpreter caregiver, SW provided pt with caregiving resources( senior resource guidebook provided). Pt does not use any DME at baseline and drives. Pt has no HH or SNF history. Pt has no snf care insurance. Pt states he has completed DPOA/ advanced directive paperwork, SW encouraged a copy to be brought. PT/OT/ST evaluations are pending. SW to follow up post therapy recommendations and MD orders. SW provided pt with discharge planning checklist and encouraged pt to call with any questions,phone number provided. Pt confirms one of his children will provide transport home. No concerns noted at this time regarding pt's capacity for self care. SW will continue to follow. Assessment:Pt who is independent at baseline. Plan:Anticipate pt to discharge home. SW to follow up with pt post therapies and MD orders for any services. SW will continue to follow. NYDIA Oquendo Addendum: 02/09/17 at 1741 by SHANKAR LOCKWOOD Amended: Links added.
[2017-02-10] VITALS (8 sets, daily range): BP systolic 114–145; BP diastolic 63–81; PULSE 46–59; RESP 16–18; O2SAT 96–99
--- NOTE | 2017-02-10 06:42 | NUR ---
Neuro: Pt alert and oriented, exercising left arm as RN walked into the room this morning. Left arm drifts, senior analytic consultant and strength equal bilateral. In a sitting position, pt also falls slightly to the left. Tele SB in the 40s. Pt states, and H & P notes, a history of low heart rates. Pt states it is usually in the 40s.
[2017-02-10] MEDS: Brimonidine 0.2% 5 mL Ophthalmic Solution BOTH_EYES SCH (07:28)
--- NOTE | 2017-02-10 13:54 | PCM.PNMED ---
Subjective Date of Service Feb 10, 2017 Subjective Patient notes slight improvement in left-sided weakness. Had significant difficulty walking yesterday due to the weakness with physical therapy. Exam Vital Signs Vital Sign - Last Date Time Temp Pulse Resp B/P Pulse Ox O2 Delivery O2 Flow Rate FiO2 02/10/17 12:44 36.3 47 18 142/76 97 Room Air Intake and Output 02/09/17 02/09/17 02/10/17 Cumulative From/Thru 15:00 23:00 07:00 02/09/17 08:43 - 02/10/17 05:29 Intake Total 236 ml 350 ml 586 ml Output Total 420 ml 550 ml 970 ml Balance -184 ml -200 ml -384 ml Intake Oral 236 ml 350 ml 586 ml Output Urine Total 420 ml 550 ml 970 ml # Voids 1 1 # Bowel Movements 0 0 0 Exam Constitutional: Elderly male in no acute distress Head: Normocephalic atraumatic Chest: Clear to auscultation Cor: Bradycardic rate and regular rhythm S1-S2 Abdomen: Soft nontender bowel sounds present Extremities: No pedal edema Psych: Mood and affect are appropriate Skin: No rashes Neuro: He is alert and oriented 3, does have 4+ out of 5 strength of his left side and 5 out of 5 on the right side Lab and Diagnostics Laboratory Tests 72 Hours Test 02/09/17 08:50 02/09/17 11:00 White Blood Count 6.8th/mm3 (3.8-10.1) Red Blood Count 4.42mil/mm3 (4.40-5.80) Hemoglobin 14.2g/dL (13.8-17.2) Hematocrit 41.7% (41.0-50.0) Mean Corpuscular Volume 94.3fL (81-100) Mean Corpuscular Hemoglobin 32.1pg (27.0-35.0) Mean Corpuscular Hemoglobin Concent 34.1% (32.0-37.0) Red Cell Distribution Width 12.5% (12.3-15.4) Platelet Count 228bil/L (150-400) Neutrophils (%) (Auto) 62.6% (40-74) Lymphocytes (%) (Auto) 17.4% (14-46) Monocytes (%) (Auto) 16.4% (4-12) Eosinophils (%) (Auto) 2.9% (0-5) Basophils (%) (Auto) 0.4% (0-3) Prothrombin Time 10.7sec (8.1-12.5) Prothromb Time International Ratio 1.00ratio Activated Partial Thromboplast Time 29.3sec (22.8-33.0) Sodium Level 138mEq/L (134-144) Potassium Level 4.1mEq/L (3.5-5.2) Chloride Level 101mEq/L (97-108) Carbon Dioxide Level 20mmol/L (18-29) Blood Urea Nitrogen 15mg/dL (8-27) Creatinine 0.45mg/dL (0.76-1.27) Estimat Glomerular Filtration Rate 191mL/min (>59) Glucose Level 108mg/dL (60-99) Calcium Level 9.0mg/dL (8.5-10.1) Total Bilirubin 0.6mg/dL (0.0-1.2) Aspartate Amino Transf (AST/SGOT) 22U/L (0-50) Alanine Aminotransferase (ALT/SGPT) 15U/L (0-44) Alkaline Phosphatase 123U/L (25-160) Troponin T 0.010ug/L (0.0-0.011) Total Protein 7.1g/dL (6.4-8.4) Albumin 4.0g/dL (3.4-5.0) Triglycerides Level 83mg/dL (0-149) Cholesterol Level 169mg/dL (100-199) LDL Cholesterol, Calculated 98.400mg/dL (0-99) VLDL Cholesterol 16.600mg/dL HDL Cholesterol 54mg/dL (>39) Cholesterol/HDL Ratio 3.13 (0.0-4.4) Urine Color Yellow (YELLOW) Urine Appearance Clear (CLEAR,HAZY) Urine pH 6.0 (5.0-8.0) Urine Specific [place] 1.014 (1.003-1.035) Urine Protein Negativemg/dL (NEG,TRACE) Urine Glucose (UA) Negativemg/dL (NEGATIVE) Urine Ketones Negativemg/dL (NEGATIVE) Urine Occult Blood Negative (NEGATIVE) Urine Nitrite Negative (NEGATIVE) Urine Bilirubin Negative (NEGATIVE) Urine Urobilinogen Normalmg/dL (NORMAL) Urine Leukocyte Esterase Negative (NEGATIVE) Urine RBC 0-2/hpf (0-2) Urine WBC 0-5/hpf (0-5) Urine Epithelial Cells Few/hpf (NONE-MOD) Urine Crystals Oxalic acid crystals (NONE Urine Bacteria None/hpf (NONE-FEW) Urine Hyaline Casts None/lpf (NONE) Urine Granular Casts None seen (NONE SEEN) Urine Waxy Casts None seen (NONE SEEN) Urine Red Blood Cell Casts None seen (NONE SEEN) Urine White Blood Cell Casts None seen (NONE SEEN) Urine Mucus None seen (None Seen) Urine Trichomonas None seen (NONE SEEN) Urine Yeast None (NONE SEEN) Urinalysis Comment None Urine Culture Reflexed Not indicated Result Diagram: 02/09/17 0850 02/09/17 0850 X-Rays, CTs and MRIs IMPRESSION: BRAIN MRI: 1. Acute to early subacute infarct in the posterior limb of the right internal capsule without evidence of hemorrhagic transformation. 2. Moderate cerebral volume loss and mild chronic white matter small vessel ischemic changes. BRAIN MR ANGIOGRAM: 1. No high-grade stenosis or occlusion of the head and neck arteries. NECK MR ANGIOGRAM: 1. Bilateral stenoses of approximately 70% in the carotid bulbs. Findings were discussed with Dr. Davis on 02/09/17 at 4:25 PM. The estimate of stenosis included in the report of the imaging study was calculated using the NASCET method Dictated by: Woody Nelson M.D. on 02/09/2017 at 16:22 Approved by: Woody Nelson M.D. on 02/09/2017 at 16:33 PROCEDURE: CT BRAIN WITHOUT CONTRAST ([id number]) INDICATIONS: L side numbness TECHNIQUE: Noncontrast 4.5 mm thick angled axial sections acquired from the foramen magnum to the vertex, with coronal reformats. COMPARISON: None. FINDINGS: Image quality: Excellent. CSF spaces: Basal cisterns are patent. No extra-axial fluid collections. The ventricles are symmetric in size and shape. There is gkkw-wc-mdlbzkun cerebral volume loss, with resultant ventricular and sulcal prominence. Brain: No intracranial hemorrhage, mass, or mass effect. There are subcortical , periventricular and deep white matter hypodensities consistent with mild chronic small vessel ischemic changes. There is intracranial internal carotid artery atherosclerosis. Skull and face: Calvarium and visualized facial bones appear intact, without suspicious lesions. Sinuses: Visualized sinuses demonstrate mild mucosal thickening in the ethmoid and sphenoid sinuses. The mastoid air cells are clear. IMPRESSION: 1. No acute intracranial abnormality. 2. Pguu-if-ylktqspm cerebral volume loss and mild chronic white matter small vessel ischemic changes. Dictated by: Woody Nelson M.D. on 02/09/2017 at 9:33 Approved by: Woody Nelson M.D. on 02/09/2017 at 9:34 12-lead ECG Sinus area 49 QTc is 416 poor R-wave progression across precordium Cardiac Echo Impressions Not completed as of yet Assessment & Plan # CVA with left hemiparesis, acute, present on admission -We will add Plavix to ASA 81 mg by mouth daily -Check echocardiogram -MR stroke protocol reveals CVA in the posterior limb of right MCA distribution and right internal capsule. -MRA reveals up to 70% stenosis of the carotid bulbs bilaterally. Might consider outpatient vascular surgery consultation regarding this as patient has had a CVA. -ST, OT, PT consults -Case management to work with ST, OT, PT to determine placement needs -Placed on telemetry which reveals sinus bradycardia can go as low as mid 40s but patient is asymptomatic with it. Patient notes that that is normal for him and has had that before. # Parkinson's disease, chronic, present on admission -Continue with Mirapex # Dementia, chronic, present on admission -Continue with Aricept # DVT prophylaxis -We will use SCDs in place on subcutaneous prophylactic anticoagulant given recent CVA in 1 to avoid hemorrhagic extension # CODE STATUS -Full code GI Prophylaxis: H2 yoselyn VTE Prophylaxis: SCDs VTE Mechanical Devices: Intermittant Pneumatic CD Resuscitation Status: CPR: Attempt Resuscitation Time spent 25 minutes Leatha Davis MD Feb 10, 2017 13:54
--- NOTE | 2017-02-10 16:26 | DRSVH ---
[facility] [address] [place] [address] Echocardiogram Report Name: JUDY FROST JStudy Date: 10/2016 Height: 69 in Hospital Exam Location: [facility] Weight: 182 lb Gender: Male BSA: 2.0 m2 : 1935 Age: 81 yrs BP: 145/70 mmHg Reason For Study: CVA Ordering Physician: HOSPITALIST [facility] Performed By: Viky Heredia Referring Physician: ÁNGELA COSME Interpretation Summary Injection of contrast documented no interatrial shunt. The left atrium is moderately dilated. The right atrium is mildly dilated. The left ventricle is normal in size. The ejection fraction is estimated to be 60-65%. There are no obvious focal wall motion abnormalities noted but poor endocardial definition reduces the sensitivity for the detection of such. The right ventricle is not well visualized. The right ventricle grossly appears normal in size with probable normal systolic function. The right ventricular systolic pressure is estimated at 22 mmHg assuming a right atrial pressure of 3 mm Hg. There is no significant valvular heart disease. The ascending aorta is mild-moderately enlarged. Procedure: A two-dimensional transthoracic echocardiogram with color flow and Doppler was performed. The study quality was technically adequate. There is no prior echocardiogram noted for this patient. A saline contrast injection was performed to assess for cardiac shunting. Images from the parasternal window were difficult to obtain and are suboptimal in quality. The patient was in normal sinus rhythm during the exam. Left Ventricle: The left ventricle is normal in size. Left ventricular wall thickness is mildly increased. The ejection fraction is estimated to be 60- 65%. There are no obvious focal wall motion abnormalities noted but poor endocardial definition reduces the sensitivity for the detection of such. Assessment of diastolic parameters indicates normal left ventricular diastolic function and normal filling pressures. Right Ventricle: The right ventricle is not well visualized. The right ventricle grossly appears normal in size with probable normal systolic function. Atria: The left atrium is moderately dilated. The right atrium is mildly dilated. Injection of contrast documented no interatrial shunt. Mitral Valve: The mitral valve leaflets are slightly calcified. There is mild mitral regurgitation. Aortic Valve: The aortic valve is trileaflet. No aortic regurgitation is present. Tricuspid Valve: The tricuspid valve is normal in structure and function. The right ventricular systolic pressure is estimated at 22 mmHg assuming a right atrial pressure of 3 mm Hg. Pulmonic Valve: The pulmonic valve is not well visualized. There is no significant valvular heart disease. Great Vessels: The aortic root is normal size. The ascending aorta is mild- moderately enlarged. The IVC is of normal diameter and collapses greater than 50% with a sniff. This suggests a low right atrial pressure of 3 mm Hg. Pericardium/ Pleura There is no pericardial effusion. There is an anterior echo-free space consistent with a fat pad. There has been no significant change since the previous study. MMode/2D Measurements & Calculations LVIDd: 4.7 cm RA long axis LVOT diam LVIDs: 2.8 cm LA A2 area: 27.5 cm FS: 40.2 % LA A4 area: 23.4 cm RA area asc Aorta IVSd: 1.3 cm LA length (vol): 6.6 cm Diam: 4.0 cm LVPWd: 1.1 cm LA vol: 82.8 ml : 17.7 cm LA vol index RA vol: 47.7 ml RA : 41.7 ml/m2 : 24.0 mm2 LV kent. diameter/BSA LV sys. diameter/BSA TAPSE: 2.8 cm (cm/m^2): 2.4 (cm/m^2): 1.4 Doppler Measurements & Calculations Ao V2 max MV E max patel MV E/A: 1.1 TR max patel : 193.5 cm/sec : 62.0 cm/sec Med Peak E' Patel : 217.4 cm/sec Ao max PG MV A max patel TR max P.9 mmHg : 15.0 mmHg : 55.1 cm/sec E/E' med: 8.3 Ao mean PG Lat Peak E' Patel LVOT Max Patel E/E' lat: 6.3 : 117.5 cm/sec E/e' average JOAQUIM(I,D): 3.3 cm sev ratio MV dec time Ao V2 mean LV V1 max PG JOAQUIM indexed to BSA : 0.28 sec : 128.3 cm/sec (cm^2/m^2): 1.6 Ao V2 VTI: 43.6 cmLV V1 VTI : 27.9 cm JOAQUIM(V,D): 3.1 cm2 Reading Physician:YAHAIRA
--- NOTE | 2017-02-10 16:48 | NUR ---
Activity Per PT recommendation, pt up to commode and then to recliner chair for dinner. Pt up with assist of 2 and FWW. Although pt was slow, and did have some difficulty with coordination and movement of his left hand and leg, he tolerated activity fairly well. Will continue to assist pt with PT approved activities, and monitor progress.
[2017-02-11 00:22] VITALS: BP 138/76; RESP 18; O2SAT 97
[2017-02-11 04:17] VITALS: BP 126/71; PULSE 46; RESP 16; O2SAT 98
--- NOTE | 2017-02-11 06:32 | NUR ---
Neuro, Activity: Pt is able to hold left arm up without a drift and touch finger to nose with concentration. Slight drift if not concentrating, "I've been practicing". 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 Currently up in the recliner chair for the morning, 2 staff assist with the FWW.
--- NOTE | 2017-02-11 08:22 | PCM.PNMED ---
Subjective Date of Service Feb 11, 2017 Subjective Still weak on left arm more than left. No problems with speech or swallow. No dyspnea, chest pain, nausea or constipation. No confusion. No overnight events. Exam Vital Signs Vital Sign - Last Date Time Temp Pulse Resp B/P Pulse Ox O2 Delivery O2 Flow Rate FiO2 02/11/17 04:17 36.6 46 16 126/71 98 Room Air Intake and Output 02/10/17 02/10/17 02/11/17 Cumulative From/Thru 15:00 23:00 07:00 02/09/17 08:43 - 02/11/17 05:52 Intake Total 520 ml 350 ml 1456 ml Output Total 325 ml 700 ml 1995 ml Balance 195 ml -350 ml -539 ml Intake Oral 520 ml 350 ml 1456 ml Output Urine Total 325 ml 700 ml 1995 ml # Voids 2 3 # Bowel Movements 0 0 0 Exam Alert and oriented. Normal speech No droop Conjugate gaze. Lungs clear with normal effort Heart regular, no murmur Abdomen soft No leg edema. Left arm ataxic, good strength left leg. IVs and Medications Medications Reviewed: Medications were reviewed in detail Lab and Diagnostics Result Diagram: 02/09/17 0850 02/09/17 0850 X-Rays, CTs and MRIs IMPRESSION: BRAIN MRI: 1. Acute to early subacute infarct in the posterior limb of the right internal capsule without evidence of hemorrhagic transformation. 2. Moderate cerebral volume loss and mild chronic white matter small vessel ischemic changes. BRAIN MR ANGIOGRAM: 1. No high-grade stenosis or occlusion of the head and neck arteries. NECK MR ANGIOGRAM: 1. Bilateral stenoses of approximately 70% in the carotid bulbs. Findings were discussed with Dr. Davis on 02/09/17 at 4:25 PM. The estimate of stenosis included in the report of the imaging study was calculated using the NASCET method Dictated by: Woody Nelson M.D. on 02/09/2017 at 16:22 Approved by: Woody Nelson M.D. on 02/09/2017 at 16:33 PROCEDURE: CT BRAIN WITHOUT CONTRAST ([id number]) INDICATIONS: L side numbness TECHNIQUE: Noncontrast 4.5 mm thick angled axial sections acquired from the foramen magnum to the vertex, with coronal reformats. COMPARISON: None. FINDINGS: Image quality: Excellent. CSF spaces: Basal cisterns are patent. No extra-axial fluid collections. The ventricles are symmetric in size and shape. There is huvb-ed-bdtsbipm cerebral volume loss, with resultant ventricular and sulcal prominence. Brain: No intracranial hemorrhage, mass, or mass effect. There are subcortical , periventricular and deep white matter hypodensities consistent with mild chronic small vessel ischemic changes. There is intracranial internal carotid artery atherosclerosis. Skull and face: Calvarium and visualized facial bones appear intact, without suspicious lesions. Sinuses: Visualized sinuses demonstrate mild mucosal thickening in the ethmoid and sphenoid sinuses. The mastoid air cells are clear. IMPRESSION: 1. No acute intracranial abnormality. 2. Supz-dv-crghguyj cerebral volume loss and mild chronic white matter small vessel ischemic changes. Dictated by: Woody Nelson M.D. on 02/09/2017 at 9:33 Approved by: Woody Nelson M.D. on 02/09/2017 at 9:34 12-lead ECG Sinus area 49 QTc is 416 poor R-wave progression across precordium Cardiac Echo Impressions Not completed as of yet Assessment & Plan # CVA with left hemiparesis, acute, present on admission and improving. -We will add Plavix to ASA 81 mg by mouth daily -Echocardiogram (normal) -MR stroke protocol reveals CVA in the posterior limb of right MCA distribution and right internal capsule. -MRA reveals up to 70% stenosis of the carotid bulbs bilaterally. Might consider outpatient vascular surgery consultation regarding this as patient has had a CVA. -ST, OT, PT consults -Case management to work with ST, OT, PT to determine placement needs -Placed on telemetry which reveals sinus bradycardia can go as low as mid 40s but patient is asymptomatic with it. Patient notes that that is normal for him and has had that before. -Possible inpatient rehab candidate. # Parkinson's disease, chronic, present on admission -Continue with Mirapex # Dementia, chronic, present on admission -Continue with Aricept # DVT prophylaxis -We will use SCDs in place on subcutaneous prophylactic anticoagulant given recent CVA in 1 to avoid hemorrhagic extension # CODE STATUS -Full code Discharge 1-2 days SNF verses inpatient rehab GI Prophylaxis: H2 yoselyn VTE Prophylaxis: SCDs VTE Mechanical Devices: Intermittant Pneumatic CD Resuscitation Status: CPR: Attempt Resuscitation Sahil Flores MD Feb 11, 2017 08:22
[2017-02-11 09:28] VITALS: BP 130/76; PULSE 52; RESP 18; O2SAT 96
[2017-02-11 09:59] VITALS: PULSE 51
[2017-02-11] MEDS: Brimonidine 0.2% 5 mL Ophthalmic Solution BOTH_EYES SCH (10:20)
--- NOTE | 2017-02-11 13:35 | NUR ---
Evaluation completed. Please go to "Notes" then click on "Assessments and Notes" (bottom left corner of screen). Then select appropriate discipline tab on top of screen.
--- NOTE | 2017-02-11 17:26 | NUR ---
Social Work-continued d/c planning/multidisciplinary rounds: Data:EMR Reviewed. Pt is on day 2 of hospitalization for CVA per H&P. Pt is not medically stable anticipate several more days. PT/ OT saw pt and are recommending inpt rehab. order received for Inpt rehab vs HH. SW spoke with pt at bedside, SW role explained. SW explained recommendation of inpt rehab. Pt states he will not go and that he needs to go home at discharge. SW went over risks and benefits of inpt rehab and pt continues to decline. Pt's has dementia and he helps assist with her at home. SW discussed increasing his caregiving assistance at home, Senior resource guidebook has been provided to pt. Pt states he is working on this. Pt declining having SW call his family. SW discussed HH services, HH choice list provided. Pt is agreeable to HH and would like referral to [facility] as he has used them in the past. SW called Jamal Tim Nelson and provided him with referral for RN,PT, and OT, access given. F2F to be completed by . SW will continue to follow. Assessment:Pt who is declining placement, but agreeable to HH. Plan:Pt to discharge home when medically stable via POV. Pt is declining inpt rehab. Pt has caregiver support at home for his and is planning on increasing this. Referral made to [facility] for RN,PT, and OT, access given. F2F to be completed by . MEG will continue to follow. NYDIA Oquendo
[2017-02-11 18:28] VITALS: BP 129/73; PULSE 55; RESP 18; O2SAT 97
[2017-02-11 20:47] VITALS: BP 138/69; PULSE 50; RESP 16; O2SAT 97
[2017-02-12] VITALS (7 sets, daily range): BP systolic 128–146; BP diastolic 69–72; PULSE 47–57; RESP 16–18; O2SAT 97–98
--- NOTE | 2017-02-12 00:15 | NUR ---
activity patient with bright affect. hand squeeze is equal. continues to list to the left. propped with pillows. discussed family life. patient expects to be going home late . care ongoing.
[2017-02-12] MEDS: Brimonidine 0.2% 5 mL Ophthalmic Solution BOTH_EYES SCH (10:52)
--- NOTE | 2017-02-12 13:47 | PCM.PNMED ---
Subjective Date of Service Feb 12, 2017 Subjective He is doing better today. He has better strength left arm and leg. No headache. No visual changes or difficulty speaking. She denies any cough or shortness of breath. No palpitations or chest or abdominal pain. No overnight events noted Exam Vital Signs Vital Sign - Last Date Time Temp Pulse Resp B/P Pulse Ox O2 Delivery O2 Flow Rate FiO2 02/12/17 13:19 36.4 56 18 135/72 98 Room Air Intake and Output 02/11/17 02/11/17 02/12/17 Cumulative From/Thru 15:00 23:00 07:00 02/09/17 08:43 - 02/12/17 04:48 Intake Total 880 ml 2336 ml Output Total 670 ml 2665 ml Balance 210 ml -329 ml Intake Oral 880 ml 2336 ml Output Urine Total 670 ml 2665 ml # Voids 1 4 # Bowel Movements 0 Exam Alert and oriented -3, no distress. Fluent speech Anicteric sclera. Lungs are clear with normal rate and effort Heart is regular without murmur gallop or rub Abdomen soft nontender, flat Extremities are free of edema. Skin is free of rash or lesions. Mild left arm weakness Mild left leg weakness and gait instability. IVs and Medications Medications Reviewed: Medications were reviewed in detail Lab and Diagnostics Result Diagram: 02/09/17 0850 02/09/17 0850 X-Rays, CTs and MRIs IMPRESSION: BRAIN MRI: 1. Acute to early subacute infarct in the posterior limb of the right internal capsule without evidence of hemorrhagic transformation. 2. Moderate cerebral volume loss and mild chronic white matter small vessel ischemic changes. BRAIN MR ANGIOGRAM: 1. No high-grade stenosis or occlusion of the head and neck arteries. NECK MR ANGIOGRAM: 1. Bilateral stenoses of approximately 70% in the carotid bulbs. Findings were discussed with Dr. Davis on 02/09/17 at 4:25 PM. The estimate of stenosis included in the report of the imaging study was calculated using the NASCET method Dictated by: Woody Nelson M.D. on 02/09/2017 at 16:22 Approved by: Woody Nelson M.D. on 02/09/2017 at 16:33 PROCEDURE: CT BRAIN WITHOUT CONTRAST ([id number]) INDICATIONS: L side numbness TECHNIQUE: Noncontrast 4.5 mm thick angled axial sections acquired from the foramen magnum to the vertex, with coronal reformats. COMPARISON: None. FINDINGS: Image quality: Excellent. CSF spaces: Basal cisterns are patent. No extra-axial fluid collections. The ventricles are symmetric in size and shape. There is ojur-ac-bukevfcz cerebral volume loss, with resultant ventricular and sulcal prominence. Brain: No intracranial hemorrhage, mass, or mass effect. There are subcortical , periventricular and deep white matter hypodensities consistent with mild chronic small vessel ischemic changes. There is intracranial internal carotid artery atherosclerosis. Skull and face: Calvarium and visualized facial bones appear intact, without suspicious lesions. Sinuses: Visualized sinuses demonstrate mild mucosal thickening in the ethmoid and sphenoid sinuses. The mastoid air cells are clear. IMPRESSION: 1. No acute intracranial abnormality. 2. Qmsk-ku-ddllmjlg cerebral volume loss and mild chronic white matter small vessel ischemic changes. Dictated by: Woody Nelson M.D. on 02/09/2017 at 9:33 Approved by: Woody Nelson M.D. on 02/09/2017 at 9:34 12-lead ECG Sinus area 49 QTc is 416 poor R-wave progression across precordium Cardiac Echo Impressions Not completed as of yet Assessment & Plan # CVA with left hemiparesis, acute, present on admission and improving. -We will add Plavix to ASA 81 mg by mouth daily -Echocardiogram (normal) -MR stroke protocol reveals CVA in the posterior limb of right MCA distribution and right internal capsule. -MRA reveals up to 70% stenosis of the carotid bulbs bilaterally. Might consider outpatient vascular surgery consultation regarding this as patient has had a CVA. -ST, OT, PT consults -Case management to work with ST, OT, PT to determine placement needs -Placed on telemetry which reveals sinus bradycardia can go as low as mid 40s but patient is asymptomatic with it. Patient notes that that is normal for him and has had that before. -Possible inpatient rehab candidate. We will continue Plavix as patient apparently had a stroke while on chronic aspirin. # Parkinson's disease, chronic, present on admission -Continue with Mirapex . No other changes # Dementia, chronic, present on admission -Continue with Aricept # DVT prophylaxis -We will use SCDs in place on subcutaneous prophylactic anticoagulant given recent CVA in 1 to avoid hemorrhagic extension # CODE STATUS -Full code Discharge 1-2 days SNF verses inpatient rehab. The patient had continued to talk about wanting to go home with home health, resume home health. However therapies continue to believe the patient will dramatically benefit from inpatient rehabilitation. We will continue to try to accomplish this discharge goal. GI Prophylaxis: H2 yoselyn VTE Prophylaxis: SCDs VTE Mechanical Devices: Intermittant Pneumatic CD Resuscitation Status: CPR: Attempt Resuscitation Sahil Flores MD Feb 12, 2017 13:47
--- NOTE | 2017-02-12 16:32 | NUR ---
INPATIENT REHAB REFERRAL : Faxed referral to [facility] Inpatient rehab per SMOG TECHNICIAN and MD orders
--- NOTE | 2017-02-12 17:26 | NUR ---
Patient Concerns: Patient concerned about recommendation to Inpt Rehab facility. Patient lives at home alone with and is her main caregiver. Multiple discussions with patient about his own limitations at this time and how he will be able to adequately care for himself and his . Discussed patient concerns w/MD, PT and OT. Family present this afternoon and was also encouraging patient to accept Inpt rehab. Daughter states that patient will be agreeable to go to rehab if 's family will provide care during that time period. Confirmed this decision with the patient. CM aware.
[2017-02-13 04:17] VITALS: BP 153/75; PULSE 44; RESP 17; O2SAT 97
--- NOTE | 2017-02-13 05:49 | NUR ---
Uneventful Night: Pt rested through the night with no complaints of pain or discomfort. Denies SOB or n/v. Continues to have left arm weakness. Alert and oriented. Accepting of need to go into inpatient rehab in [place]. Call light within reach, using appropriately. Frequent rounding in place. Pleasant and cooperative with care.
[2017-02-13] MEDS: Brimonidine 0.2% 5 mL Ophthalmic Solution BOTH_EYES SCH (09:19)
--- NOTE | 2017-02-13 12:26 | PCM.PNMED ---
Subjective Date of Service Feb 13, 2017 Subjective Patient seen and examined. Doing much better. Vitals noted. Exam Vital Signs Vital Sign - Last Date Time Temp Pulse Resp B/P Pulse Ox O2 Delivery O2 Flow Rate FiO2 02/13/17 04:17 36.5 44 17 153/75 97 Room Air Intake and Output 02/12/17 02/12/17 02/13/17 Cumulative From/Thru 15:00 23:00 07:00 02/09/17 08:43 - 02/13/17 05:05 Intake Total 100 ml 586 ml 3022 ml Output Total 200 ml 750 ml 3615 ml Balance -100 ml -164 ml -593 ml Intake Oral 100 ml 586 ml 3022 ml Output Urine Total 200 ml 750 ml 3615 ml # Voids 4 # Bowel Movements 0 0 0 Exam Constitutional: Elderly male in no acute distress Head: Normocephalic atraumatic Chest: Clear to auscultation Cor: Bradycardic rate and regular rhythm S1-S2 Abdomen: Soft nontender bowel sounds present Extremities: No pedal edema Psych: Mood and affect are appropriate Skin: No rashes Neuro: He is alert and oriented 3, does have 4+ out of 5 strength of his left side and 5 out of 5 on the right side Lab and Diagnostics Result Diagram: 02/09/17 0850 02/09/17 0850 X-Rays, CTs and MRIs IMPRESSION: BRAIN MRI: 1. Acute to early subacute infarct in the posterior limb of the right internal capsule without evidence of hemorrhagic transformation. 2. Moderate cerebral volume loss and mild chronic white matter small vessel ischemic changes. BRAIN MR ANGIOGRAM: 1. No high-grade stenosis or occlusion of the head and neck arteries. NECK MR ANGIOGRAM: 1. Bilateral stenoses of approximately 70% in the carotid bulbs. Findings were discussed with Dr. Davis on 02/09/17 at 4:25 PM. The estimate of stenosis included in the report of the imaging study was calculated using the NASCET method Dictated by: Woody Nelson M.D. on 02/09/2017 at 16:22 Approved by: Woody Nelson M.D. on 02/09/2017 at 16:33 PROCEDURE: CT BRAIN WITHOUT CONTRAST ([id number]) INDICATIONS: L side numbness TECHNIQUE: Noncontrast 4.5 mm thick angled axial sections acquired from the foramen magnum to the vertex, with coronal reformats. COMPARISON: None. FINDINGS: Image quality: Excellent. CSF spaces: Basal cisterns are patent. No extra-axial fluid collections. The ventricles are symmetric in size and shape. There is jhrj-ch-hncmmdhw cerebral volume loss, with resultant ventricular and sulcal prominence. Brain: No intracranial hemorrhage, mass, or mass effect. There are subcortical , periventricular and deep white matter hypodensities consistent with mild chronic small vessel ischemic changes. There is intracranial internal carotid artery atherosclerosis. Skull and face: Calvarium and visualized facial bones appear intact, without suspicious lesions. Sinuses: Visualized sinuses demonstrate mild mucosal thickening in the ethmoid and sphenoid sinuses. The mastoid air cells are clear. IMPRESSION: 1. No acute intracranial abnormality. 2. Ekvn-dn-lmoisqco cerebral volume loss and mild chronic white matter small vessel ischemic changes. Dictated by: Woody Nelson M.D. on 02/09/2017 at 9:33 Approved by: Woody Nelson M.D. on 02/09/2017 at 9:34 12-lead ECG Sinus area 49 QTc is 416 poor R-wave progression across precordium Cardiac Echo Impressions Not completed as of yet Assessment & Plan # CVA with left hemiparesis, acute, present on admission and improving. - Plavix t +ASA 81 mg by mouth daily -Echocardiogram (normal) -MR stroke protocol reveals CVA in the posterior limb of right MCA distribution and right internal capsule. -MRA reveals up to 70% stenosis of the carotid bulbs bilaterally. Might consider outpatient vascular surgery consultation regarding this as patient has had a CVA. -ST, OT, PT consults -Case management to work with ST, OT, PT to determine placement needs -Placed on telemetry which reveals sinus bradycardia can go as low as mid 40s but patient is asymptomatic with it. Patient notes that that is normal for him and has had that before. -Possible inpatient rehab candidate. We will continue Plavix as patient apparently had a stroke while on chronic aspirin. # Parkinson's disease, chronic, present on admission -Continue with Mirapex . No other changes # Dementia, chronic, present on admission -Continue with Aricept # DVT prophylaxis -We will use SCDs in place on subcutaneous prophylactic anticoagulant given recent CVA in 1 to avoid hemorrhagic extension # CODE STATUS -Full code Discharge Pending inpatient rehab acceptance. . GI Prophylaxis: H2 yoselyn VTE Prophylaxis: SCDs VTE Mechanical Devices: Intermittant Pneumatic CD Resuscitation Status: CPR: Attempt Resuscitation Time spent 35 mins Arpan Neumann MD Feb 13, 2017 12:26
--- NOTE | 2017-02-13 13:22 | NUR ---
INPATIENT REHAB FOLLOW UP: Called and left message for admission line at [facility], following up on referral and wondering if they would be able to accept patient today. Per PREM BOB patient is medically stable. Updated DRAWER IN DOBBY LOOM Addendum: 02/13/17 at 1556 by VALENTINE LONGORIA CM Spoke with [facility] and she is needing more clinicals, she is questioning home situation and support post rehab. Faxed additional clinicals
[2017-02-13 13:38] VITALS: BP 161/88; PULSE 62; RESP 18; O2SAT 98
[2017-02-13 16:45] VITALS: BP_SYST 149; BP_SYST 163; BP_DIAS 78; BP_DIAS 81
--- NOTE | 2017-02-13 18:28 | NUR ---
activity/HTN Pt. needing 2 person assist to bsc, feet tend to "stick to the floor". Due to elevated BP, PT unable to work with Pt. this afternoon. Pt.'s pressure elevated from 140s to 160s this afternoon. has been notified; ordered to continue to monitor at this time. Last read at 1645, reading L arm at 149/78 and R arm reading 163/81. Pt. was at rest. Pt. reported that he is concerned about his spouse spending 14 days without his care at home while he is in rehab. Neuro checks: pt. feels his stregth has increased, just generally weak. Fine motor skills seem to have improved. Anticipating discharge 02/14/17 AM. Care continues.
[2017-02-13 20:33] VITALS: BP 158/80; PULSE 49; RESP 18; O2SAT 98
[2017-02-14 04:59] VITALS: BP 148/71; PULSE 49; RESP 18; O2SAT 97
--- NOTE | 2017-02-14 07:06 | NUR ---
Neuro Stable Pt alert and orientecx3,some memory loss, states strength improved, some balance problems, fine motor problem at left hand when pickle sorter small items,but improving, some numbness and tingling at left arm and face, left side weakness nearly unnoticeable, full strength at right extremities, light sensation equal bilaterally, tongue midline, no facial droop noted,no speech difficulty noted. Pt sleeping throughout the night,no complains. VSS.
[2017-02-14] MEDS ORDERED: ATOR40TA69 PO (07:13)
[2017-02-14] MEDS ORDERED: CLOP75TA28 PO (07:13)
--- NOTE | 2017-02-14 07:15 | PCM.DIMED ---
Discharge Instructions Date of Service Feb 14, 2017 Dates of Hospitalization Feb 09, 2017 at 11:45 Discharge Diagnosis Discharge Diagnosis Stroke Diet Discharge Diet: Heart Healthy Activity Discharge Activity: Limited until seen by PCP Call your provider Call your provider for: Fever or Chills, Chest pain, Weakness (unilateral) ( worsening) Patient Instructions Follow-up with PCP in: 1 week (Needs assessment via vascular surgeon for carotid stenosis ) Arpan Neumann MD Feb 14, 2017 07:15
--- NOTE | 2017-02-14 07:30 | NUR ---
Social Work Note: Continued Discharge Planning Late Note Data& Assessment: CATEGORY DEVELOPMENT ANALYST spoke with [facility] in admissions regarding pt acceptance yesterday evening. Sakina explained they would likely be able to accept pt later this morning and wanted to confirm some details with pt family. CATEGORY DEVELOPMENT ANALYST left voicemail for [facility] this morning with inpt rehab to confirm plan. CATEGORY DEVELOPMENT ANALYST to continue to follow. Plan: Anticipated discharge to [facility] when medically ready. CATEGORY DEVELOPMENT ANALYST to follow up with [facility] in admission and pt family to confirm plan. NYDIA Tellez
[2017-02-14] MEDS: Brimonidine 0.2% 5 mL Ophthalmic Solution BOTH_EYES SCH (08:44)
--- NOTE | 2017-02-14 08:53 | PCM.DC.MED ---
Discharge Summary Date of Service Feb 14, 2017 Dates of Hospitalization Date of Hospital Admission Feb 09, 2017 at 11:45 Date of Discharge: Feb 14, 2017 Providers: Admitting Physician: Leatha Davis MD Primary Care Physician: Octavia Mares MD Attending Physician: Bryce Keith MD Diagnosis at Time of Discharge Diagnosis at Time of Discharge Stroke Procedures XRay, CTs & MRIs IMPRESSION: BRAIN MRI: 1. Acute to early subacute infarct in the posterior limb of the right internal capsule without evidence of hemorrhagic transformation. 2. Moderate cerebral volume loss and mild chronic white matter small vessel ischemic changes. BRAIN MR ANGIOGRAM: 1. No high-grade stenosis or occlusion of the head and neck arteries. NECK MR ANGIOGRAM: 1. Bilateral stenoses of approximately 70% in the carotid bulbs. Findings were discussed with Dr. Davis on 02/09/17 at 4:25 PM. The estimate of stenosis included in the report of the imaging study was calculated using the NASCET method Dictated by: Woody Nelson M.D. on 02/09/2017 at 16:22 Approved by: Woody Nelson M.D. on 02/09/2017 at 16:33 PROCEDURE: CT BRAIN WITHOUT CONTRAST ([id number]) INDICATIONS: L side numbness TECHNIQUE: Noncontrast 4.5 mm thick angled axial sections acquired from the foramen magnum to the vertex, with coronal reformats. COMPARISON: None. FINDINGS: Image quality: Excellent. CSF spaces: Basal cisterns are patent. No extra-axial fluid collections. The ventricles are symmetric in size and shape. There is wrrh-sc-dizqmnev cerebral volume loss, with resultant ventricular and sulcal prominence. Brain: No intracranial hemorrhage, mass, or mass effect. There are subcortical , periventricular and deep white matter hypodensities consistent with mild chronic small vessel ischemic changes. There is intracranial internal carotid artery atherosclerosis. Skull and face: Calvarium and visualized facial bones appear intact, without suspicious lesions. Sinuses: Visualized sinuses demonstrate mild mucosal thickening in the ethmoid and sphenoid sinuses. The mastoid air cells are clear. IMPRESSION: 1. No acute intracranial abnormality. 2. Qica-ha-zdgqqjsl cerebral volume loss and mild chronic white matter small vessel ischemic changes. Dictated by: Woody Nelson M.D. on 02/09/2017 at 9:33 Approved by: Woody Nelson M.D. on 02/09/2017 at 9:34 ECG 12 Lead Sinus area 49 QTc is 416 poor R-wave progression across precordium Cardiac Echo Impression Not completed as of yet Brief History This is an 81-year-old male with a history of Parkinson's and mild to moderate dementia who presents to the emergency room complaining of acute onset either before he went to better when he woke up this morning of left sided weakness. He has had no prior history of similar. Had no history of strokes. He denies any chest pain palpitations fevers or chills. He does take ASA 81 mg by mouth daily. His EKG shows sinus at a rate of 49 and patient notes that he has a long history of always a slow heart rate. He denies any change in speech or thought processes. CT scan without contrast of head reveals no acute intracranial abnormality. Mild to moderate cerebral volume loss and mild chronic white matter changes are consistent with small vessel ischemic changes. Patient currently is on Aricept and Mirapex for his Parkinson's disease. He does live with his was not at bedside during the interview with the patient. Hospital Course # CVA with left hemiparesis, acute, present on admission and improving. - Plavix t +ASA 81 mg by mouth daily -Echocardiogram (normal) -MR stroke protocol reveals CVA in the posterior limb of right MCA distribution and right internal capsule. -MRA reveals up to 70% stenosis of the carotid bulbs bilaterally. Might consider outpatient vascular surgery consultation regarding this as patient has had a CVA. -ST, OT, PT consulted -inpatient rehab We will continue Plavix as patient apparently had a stroke while on chronic aspirin. # Parkinson's disease, chronic, present on admission -Continue with Mirapex . # Dementia, chronic, present on admission -Continue with Aricept # CODE STATUS -Full code. . Exam Vital Signs (Last) Date Time Temp Pulse Resp B/P Pulse Ox O2 Delivery O2 Flow Rate FiO2 02/14/17 04:59 36.5 49 18 148/71 97 Room Air Test 02/09/17 08:50 02/09/17 11:00 White Blood Count 6.8th/mm3 (3.8-10.1) Red Blood Count 4.42mil/mm3 (4.40-5.80) Hemoglobin 14.2g/dL (13.8-17.2) Hematocrit 41.7% (41.0-50.0) Mean Corpuscular Volume 94.3fL (81-100) Mean Corpuscular Hemoglobin 32.1pg (27.0-35.0) Mean Corpuscular Hemoglobin Concent 34.1% (32.0-37.0) Red Cell Distribution Width 12.5% (12.3-15.4) Platelet Count 228bil/L (150-400) Neutrophils (%) (Auto) 62.6% (40-74) Lymphocytes (%) (Auto) 17.4% (14-46) Monocytes (%) (Auto) 16.4% (4-12) Eosinophils (%) (Auto) 2.9% (0-5) Basophils (%) (Auto) 0.4% (0-3) Prothrombin Time 10.7sec (8.1-12.5) Prothromb Time International Ratio 1.00ratio Activated Partial Thromboplast Time 29.3sec (22.8-33.0) Sodium Level 138mEq/L (134-144) Potassium Level 4.1mEq/L (3.5-5.2) Chloride Level 101mEq/L (97-108) Carbon Dioxide Level 20mmol/L (18-29) Blood Urea Nitrogen 15mg/dL (8-27) Creatinine 0.45mg/dL (0.76-1.27) Estimat Glomerular Filtration Rate 191mL/min (>59) Glucose Level 108mg/dL (60-99) Hemoglobin A1c 6.1% (4.8-5.6) Calcium Level 9.0mg/dL (8.5-10.1) Total Bilirubin 0.6mg/dL (0.0-1.2) Aspartate Amino Transf (AST/SGOT) 22U/L (0-50) Alanine Aminotransferase (ALT/SGPT) 15U/L (0-44) Alkaline Phosphatase 123U/L (25-160) Troponin T 0.010ug/L (0.0-0.011) Total Protein 7.1g/dL (6.4-8.4) Albumin 4.0g/dL (3.4-5.0) Triglycerides Level 83mg/dL (0-149) Cholesterol Level 169mg/dL (100-199) LDL Cholesterol, Calculated 98.400mg/dL (0-99) VLDL Cholesterol 16.600mg/dL HDL Cholesterol 54mg/dL (>39) Cholesterol/HDL Ratio 3.13 (0.0-4.4) Urine Color Yellow (YELLOW) Urine Appearance Clear (CLEAR,HAZY) Urine pH 6.0 (5.0-8.0) Urine Specific [place] 1.014 (1.003-1.035) Urine Protein Negativemg/dL (NEG,TRACE) Urine Glucose (UA) Negativemg/dL (NEGATIVE) Urine Ketones Negativemg/dL (NEGATIVE) Urine Occult Blood Negative (NEGATIVE) Urine Nitrite Negative (NEGATIVE) Urine Bilirubin Negative (NEGATIVE) Urine Urobilinogen Normalmg/dL (NORMAL) Urine Leukocyte Esterase Negative (NEGATIVE) Urine RBC 0-2/hpf (0-2) Urine WBC 0-5/hpf (0-5) Urine Epithelial Cells Few/hpf (NONE-MOD) Urine Crystals Oxalic acid crystals (NONE Urine Bacteria None/hpf (NONE-FEW) Urine Hyaline Casts None/lpf (NONE) Urine Granular Casts None seen (NONE SEEN) Urine Waxy Casts None seen (NONE SEEN) Urine Red Blood Cell Casts None seen (NONE SEEN) Urine White Blood Cell Casts None seen (NONE SEEN) Urine Mucus None seen (None Seen) Urine Trichomonas None seen (NONE SEEN) Urine Yeast None (NONE SEEN) Urinalysis Comment None Urine Culture Reflexed Not indicated Discharge Medications Discharge Medications Aspirin (Aspirin) 81 Mg Tablet 81 MG PO DAILY (Reported) Atorvastatin Calcium (Atorvastatin Calcium) 40 Mg Tablet 40 MG PO HS Prescribed by: BRYCE KEITH MD Brimonidine Tartrate (Brimonidine 0.2% Oph Soln) 5 Ml Drops 1 DROP BOTH_EYES DAILY (Reported) Cholecalciferol (Vitamin D3) (Vitamin D) 1,000 Unit Capsule 2,000 UNIT PO DAILY (Reported) Clopidogrel (Clopidogrel) 75 Mg Tablet 75 MG PO DAILY Prescribed by: BRYCE KEITH MD Donepezil (Donepezil) 10 Mg Tablet 10 MG PO HS (Reported) Latanoprost (Latanoprost) 2.5 Ml Drops 1 DROP BOTH_EYES DAILY (Reported) Pramipexole Di-HCl (Pramipexole Dihydrochloride) 0.75 Mg Tablet 0.75 MG PO TID ( Reported) Vitamin A Palmitate (Vitamin A) 10,000 Unit Capsule 10,000 UNIT PO DAILY ( Reported) Vitamin E (Dl,Tocopheryl Acet) (Vitamin E) 200 Unit Capsule 200 UNIT PO DAILY ( Reported) Followup Plan Discharge Diet: Heart Healthy Discharge Activity: Limited until seen by PCP Follow-up with PCP in: 1 week (Needs assessment via vascular surgeon for carotid stenosis ) Time spent 35 mins Bryce Keith MD Feb 14, 2017 08:53
--- NOTE | 2017-02-14 09:00 | NUR ---
SHAKIRA signed. NYDIA Oquendo
--- NOTE | 2017-02-14 09:21 | NUR ---
[facility] in rehab can accept pt. NYDIA Oquendo
--- NOTE | 2017-02-14 09:22 | NUR ---
Social Work-discharge: Data:EMR reviewed. Pt is on day 5 of hospitalization for CVA per H&P. Pt is medically stable for discharge. PT/OT recommending inpt rehab. MEG spoke with Sakina this morning at [facility] and they are able to accept pt today. MEG spoke with pt and daughter Jasmin at bedside, who are agreeable to plan. Jasmin states she will provide transport today. MEG faxed orders to [facility] and informed Sakina of discharge time. Sakina confirms she has received orders. MEG provided phone number for RN to call report to. MEG provided folder to daughter to take to [facility]. Pt plans to leave around 1030. All updated and agreeable to plan. Assessment:Pt who would benefit from inpt rehab. Plan:Pt to discharge to [facility] inpt rehab today via POV at 1030. All orders faxed and packet created. All updated and agreeable to plan. NYDIA Oquendo
--- NOTE | 2017-02-14 09:55 | NUR ---
Discharge Report called to Maryann at [facility] in patient rehab. questions answered at that time. Patient escorted to car by JOSE Ortega. patient's daughter to drive patient to rehab facility. discharge instructions and plan of care reviewed with patient and family. they verbalized understanding.
== END 2017-02-14 09:55 | DRG 65 ==
LOC: EDUNIT# 08:34 → SED 08:34 → EDBD 08:34 → MPC 11:45
PROVIDERS: ADMIT Specialist; ATTEND Internal Medicine
DX: I63.8 Other cerebral infarction (principal); G81.94 Hemiplegia, unspecified affecting left nondominant side; G31.83 Neurocognitive disorder with Lewy bodies; F02.80 Dementia in other diseases classified elsewhere, unspecified severity, without behavioral disturbance, psychotic disturbance, mood disturbance, and anxiety; Z79.82 Long term (current) use of aspirin; Z87.891 Personal history of nicotine dependence